=== PATIENT | female | born 1995 | race Caucasian/White ===

== ENCOUNTER → 2017-05-25 | Outpatient (CLI) | payer BC | END | disposition home or self-care (01) | LOC: C.LABSPEC 17:11 | PROVIDERS: ATTEND Nurse Practitioner Pediatrics | DX: J02.9 Acute pharyngitis, unspecified (principal) ==

== ENCOUNTER 2023-11-26 20:04 | Inpatient (IN) ==
[2023-11-26] MEDS ORDERED: OXYTOCIN 30 UNITS/NSS 30 UNITS/500 ML BAG IV PRN (20:54)
[2023-11-26] MEDS ORDERED: LIDOCAINE 1% LOCAL 20 ML VIAL INFIL PRN (20:54)
[2023-11-26 22:02] LABS: Hematocrit (blood only) 34.5 % (37.0-47.0); Mean Corpuscular Hgb Conc 34.8 g/dL (32.0-36.0); Mean Corpuscular Volume 89.1 fL (80.0-100.0); Mean Platelet Volume 11.6 fL (9.4-12.4); Platelet Count 232 K/uL (130-400); RDW Coefficient of Variation 13.1 % (11.5-14.5); RDW Standard Deviation 42.5 fL (36.4-46.3); Red Blood Count 3.87 M/uL (4.20-5.40); White Blood Count 11.98 K/ul (4.8-10.8)
--- NOTE | 2023-11-26 23:29 | History & Physical Report ---
Date of Service November 26, 2023 Assessment & Plan (1) PROM with onset of labor within 24 hours of rupture: Plan: 28-year-old G1, P0 at 38 weeks and 6 days of gestation presenting today with premature rupture of membranes at term, Slightly increased her blood pressure, asymptomatic, heart rate reassuring, Cervix unfavorable, GBS negative, Plan to admit, monitor, labs, IV fluids, discussed induction of labor either with oxytocin versus p.o. Cytotec. Patient prefers to ambulate and walk around. We will start sublingual Cytotec and pain management with IV Stadol and epidural when patient prefers, All questions were answered. Admission and Anticipated Discharge Date Admission Date: November 26, 2023 History of Present Illness Chief Complaint: LOF Primary Care Provider: Aarti Saleh MD Patient is a 28 yo at 38.6 wks with EDC of 20 She started to have LOF at around 6 pm and contractions started around 9 pm. She walked into L&D and she was grossly ruptured per her nurse, Nitrazine + Her cervix was ft/ thick/ -3, posterior She has been still leaking clear fluid Ctxs are not painful. Denies vaginal bleeding, fever chills, abdominal pain, headaches, change in vision, nausea vomiting. She reports good movements. Her has been uncomplicated, denies any medical problems, surgeries GBS neg Allergies Allergy/AdvReac Type Severity Reaction Status Date / Time No Known Allergies Allergy Verified 11/26/23 22:22 Home Medications Medication Instructions Recorded Confirmed Type 1 tab PO DAILY 11/26/23 11/26/23 History iron-vit C-vit G41-meotk acid 1 tab PO DAILY 11/26/23 11/26/23 History Patient History Medical History (Updated 11/26/23 @ 23:28 by Tameka William MD) Antepartum anemia complicating Dysfunction of eustachian tube Syncope Allergic rhinitis Vertigo Surgical History H/O wisdom tooth extraction Family History Mother Glaucoma Grandfather (Maternal) Breast cancer Grandfather (Paternal) Prostate cancer Social History Smoking Status: Never smoker Second Hand Exposure: No; Do You Dip or Chew Tobacco: No; Tobacco Cessation Education Requested by Patient: No Hx Alcohol Use: No Hx Substance Use: No Preferred Language: Hungarian Communication Ability: Effective Visual Impairment: No Limitations Hearing Ability: Normal Chief Creative Officer Required: No Beliefs That Will Affect Care: None marital status: Current Living Situation: Spouse Other Information That Helps Us Care for You: No Feels Safe at Home: No Is there a partner from a previous relationship who is making you feel unsafe now?: No Any Concerns about Your Family Situation: No Would You Like to Speak to Someone About Your Situation: No Safety Concerns: Feels Safe At This Time Assistive Devices: None DIRECT SUPPORT SPECIALIST History no h/o STD's ( HSV/Chlam/ GC) Review of Systems as per Subjective / HPI Physical Exam Constitutional: WD/WN, vitals as above well developed, well nourished and comfortable Gastrointestinal (Abdomen): normal bowel sounds, soft, nontender, no hepatosplenomegaly (GRAVID) Genitourinary: OB Exam Abdomen: + vertex OB Exam Monitor Tracing: + external uterine monitor used and + category I Bed side US: Vertex, WILBUR normal ,placenta anterior, EFW 3615 GR Results & Data Vital Signs (Past 12 Hours) Vital Signs Temp Pulse Resp BP 11/26/23 23:15 91 H 147/75 H 11/26/23 21:06 36.8 C 18 11/26/23 20:45 18 11/26/23 20:45 36.8 C 18 11/26/23 20:25 88 145/85 H Laboratory Results Lab Results 11/26/23 Range/Units 21:18 WBC 11.98 H (4.8-10.8) K/ul RBC 3.87 L (4.20-5.40) M/uL Hgb 12.0 (12.0-16.0) g/dl Hct 34.5 L (37.0-47.0) % MCV 89.1 (80.0-100.0) fL MCH 31.0 (25.0-34.0) pg MCHC 34.8 (32.0-36.0) g/dL RDW Std Deviation 42.5 (36.4-46.3) fL RDW Coeff of Jeff 13.1 (11.5-14.5) % Plt Count 232 (130-400) K/uL MPV 11.6 (9.4-12.4) fL
[2023-11-26] MEDS: miSOPROStoL 25 MCG TAB SL SCH (23:38)
[2023-11-27 01:00] LABS: Albumin Globulin Ratio 1.2 (0.9-2); Albumin Level 3.4 gm/dl (3.4-5.0); BUN Creatinine Ratio 12.7 (10-20); Bilirubin,Total 0.4 mg/dl (0.2-1.0); Calcium 8.7 mg/dl (8.6-10.3); Creatinine Clr Calc Pharmacy 134.6 ml/min; Est GFR (African American) 143.5 ml/min; Est GFR (Non-African American) 123.8 ml/min; Globulin 2.8 gm/dl (2.5-4.0); Potassium 3.5 mmol/L (3.5-5.1); Total Protein 6.2 gm/dl (6.0-8.3)
[2023-11-27] MEDS: BUTORPHANOL TARTRATE 1 MG/ML VIAL IV PRN (01:54)
[2023-11-27] MEDS: LACTATED RINGER'S 1,000 ML IV PRN (01:56)
[2023-11-27] MEDS: OXYTOCIN 30 UNITS/NSS 30 UNITS/500 ML BAG IV PRN (04:15)
--- OUTSIDE RECORDS SUMMARY | 2023-11-27 04:22 | External Medical Summary | Summary of Care ---
Author Name Unknown Organization [facility] Address [address] [facility] [place] [address] Phone [phone] Care Team Providers Care Stationary Engineer Name Role Phone Unavailable Primary Care Provider Unavailabl e Reason for Visit * Reason Comments Return Visit Encounter Details Date Type Department Care Team (Late st Contact Info) Description 11/20/2023 9:00 AM EST Office Visit Gynecology/Obstetric s [facility] [address] [place] [address] Priscilla Mccurdy CRNP [address] [place] [address] Encounter for supervision of normal first in third trimester*; Antepartum anemia complicating Allergies Active Allergy Reactions Criticality Noted Date Comments Diphenhydramine Hcl 01/16/2014 documented as of this encounter (statuses as of 11/20/2023) Medications Medication Sig Dispensed Refills Start Date End Date Status 27-0.8 MG Oral Tablet Take 1 Tablet by mouth daily at noon. 0 Active Iron-Vitamin C 65-125 MG Oral Tablet (Vitron C)Indications:Antepart um anemia complicating Take 1 Tablet by mouth in the morning. 30 Tablet 5 09/13/2023 Active documented as of this encounter (statuses as of 11/20/2023) Active Problems Problem Noted Date Diagnosed Date Antepartum anemia complicating 023 Overview: Iron daily Syncope 04/30/2023 Overview: r/t medical procedures Supervision of normal first 04/30/2023 Vertigo Allergic rhinitis Dysfunction of eustachian tube Estimated Date of Delivery Comme nts Yes 12/04/2023 Based on Ultraso und documented as of this encounter (statuses as of 11/20/2023) Resolved Problems Problem Noted Date Diagnosed Date Resolved Date Low-lying placenta 07/23/2023 Overview: Seen on anatomy u/s. Recheck 28w General counseling for presc ription of oral contraceptives 08/24/2015 04/28/2023 documented as of this encounter (statuses as of 11/20/2023) Immunizations Name Administration Dates Next Due HPV Vaccine, 9-Valent 06/14/2018,01/25/2018,11/1505/27/2018 TDAP (age 10 and older)(Boostrix) 09/26/2023 documented as of this encounter Social History Tobacco Use Types Packs/Day Years Used Date Smoking Tobacco: Never Smokeless Tobacco: Never Alcohol Use Standard Drinks/Week Comments Yes 0 (1 standard drink = 0.6 oz pur e alcohol) wkends PHQ-2 Answer Date Recorded PHQ-2 Score 0 08/18/2018 [place] Depression Scale Answer Date Recorded [place] Depression Scale Total 3 10/22/2023 The thought of harming myself has occurred to me . Never 10/22/2023 Estimated Date of Delivery Comme nts Yes 12/04/2023 Based on Ultraso und Sex and Gender Information Value Date Recorded Sex Assigned at Not on file Gender Identity Not on file Sexual Orientation Not on file Job Start Date Occupation Industry Not on file Not on file Not on file documented as of this encounter Last Filed Vital Signs Vital Sign Reading Time Taken Comments Blood Pressure 118/72 11/20/2023 8:55 AM EST Pulse - - Temperature - - Respiratory Rate - - Oxygen Saturation - - Inhaled Oxygen Concentration - - Weight 78 kg (172 lb) 11/20/2023 8:55 AM EST Height 160 cm (5' 3") 11/20/2023 8:55 AM EST Body Mass Index 30.47 11/20/2023 8:55 AM EST documented in this encounter Progress Notes * Priscilla Mccurdy CRNP - 11/20/2023 9:22 AM EST 38w No concerns. Some cramping and pressure, no regular contractions. Baby is active. No bleeding or LOF. Asking for cervical check. Transplant Nurse Documentation Provider requested senior training and development rep. Name of senior training and development rep: Sofi IOL scheduled for 12/10/23. RAFIA Fang documented in this encounter Nursing Notes * Sofi Servin LPN - 11/20/2023 9:01 AM EST 38w0d Denies concerns. Agreeable to scheduling IOL. documented in this encounter Plan of Treatment Upcoming Encounters Date Type Department Care Team (Late st Contact Info) Description 11/26/2023 8:45 AM EST Office Visit Gynecology/Obstetrics [facility] [address] [place] [address] Pelon Roland MD [address] [place] [address] 12/03/2023 1:45 PM EST Office Visit Gynecology/Obstetrics [facility] [address] [place] [address] Ruby Gonzalez CRNP [address] [place] [address] Health Maintenance Due Date Last Done Comments Hepatitis B (1 of 3 - 3-dose series) 1997 COVID-19 Vaccine (#1) 1997 Depression Screening 01/31/2019 01/31/2018 Influenza Vaccine (FLU shot) (#1) 2023 Pap Smear 10/06/2024 10/06/2021, 12/31/2018 DTaP,Tdap,and Td Vaccines (2 - Td or Tdap) 09/26/2033 09/26/2023 GARDASIL-HPV IMMUNIZATION SERIES Completed 06/14/2018, 01/25/2018, 11/26/2017 Gonorrhea / Chlamydia Screen Discontinued , 12/31/2018 MENINGOCOCCAL (MENACTRA/MENVEO) Aged Out No longer eligible based on patient's age to complete this topic Pneumococcal Vaccine: Pediatrics (0 to 5 Years) and At-Risk Patients (6 to 64 Years) Aged Out No longer eligible based on patient's age to complete this topic documented as of this encounter Medical Devices Not on filedocumented as of this encounter Visit Diagnoses Diagnosis Encounter for supervision of normal first in third trimester- Primary Supervision of normal first Antepartum anemia complicating Anemia, antepartum documented in this encounter
--- OUTSIDE RECORDS SUMMARY | 2023-11-27 04:23 | External Medical Summary | Summary of Care ---
Author Name Unknown Organization [facility] Address [address] [facility] [address] Phone [phone] Care Team Providers Care Project Intern Name Role Phone Unavailable Primary Care Provider Unavailabl e Reason for Visit * Reason Comments Return Visit Encounter Details Date Type Department Care Team (Late st Contact Info) Description 11/12/2023 7:45 AM EST Office Visit Gynecology/Obstetric s [facility] [address] [place] [address] Marleny Peres PA-C [address] [place] [address] Encounter for supervision of normal first in third trimester*; Antepartum anemia complicating Allergies Active Allergy Reactions Criticality Noted Date Comments Diphenhydramine Hcl 01/16/2014 documented as of this encounter (statuses as of 11/12/2023) Medications Medication Sig Dispensed Refills Start Date End Date Status 27-0.8 MG Oral Tablet Take 1 Tablet by mouth daily at noon. 0 Active Iron-Vitamin C 65-125 MG Oral Tablet (Vitron C)Indications:Antepart um anemia complicating Take 1 Tablet by mouth in the morning. 30 Tablet 5 09/13/2023 Active documented as of this encounter (statuses as of 11/12/2023) Active Problems Problem Noted Date Diagnosed Date Antepartum anemia complicating 023 Overview: Iron daily Syncope 04/30/2023 Overview: r/t medical procedures Supervision of normal first 04/30/2023 Vertigo Allergic rhinitis Dysfunction of eustachian tube Estimated Date of Delivery Comme nts Yes 12/04/2023 Based on Ultraso und documented as of this encounter (statuses as of 11/12/2023) Resolved Problems Problem Noted Date Diagnosed Date Resolved Date Low-lying placenta 07/23/2023 Overview: Seen on anatomy u/s. Recheck 28w General counseling for presc ription of oral contraceptives 08/24/2015 04/28/2023 documented as of this encounter (statuses as of 11/12/2023) Immunizations Name Administration Dates Next Due HPV Vaccine, 9-Valent 06/14/2018,01/25/2018,11/1505/27/2018 TDAP (age 10 and older)(Boostrix) 09/26/2023 documented as of this encounter Social History Tobacco Use Types Packs/Day Years Used Date Smoking Tobacco: Never Smokeless Tobacco: Never Alcohol Use Standard Drinks/Week Comments Yes 0 (1 standard drink = 0.6 oz pur e alcohol) wkends PHQ-2 Answer Date Recorded PHQ-2 Score 0 08/18/2018 [place] Depression Scale Answer Date Recorded [place] Depression Scale Total 3 10/22/2023 The thought [...] Sign Reading Time Taken Comments Blood Pressure 122/78 11/12/2023 7:54 AM EST Pulse - - Temperature - - Respiratory Rate - - Oxygen Saturation - - Inhaled Oxygen Concentration - - Weight 77.2 kg (170 lb 3.2 oz) 11/12/2023 7:54 A M EST Height 160 cm (5' 3") 11/12/2023 7:54 AM EST Body Mass Index 30.15 11/12/2023 7:54 AM EST documented in this encounter Progress Notes * Marleny Peres PA-C - 11/12/2023 8:06 AM EST 36w6d Doing well, having some sharp groin pains that do not last long. No contractions, LOF, VB. Pos fm. Due for GBS culture, collected. RTC in 1 week Marleny Peres PA-C documented in this encounter Nursing Notes * Elyse Hassan RN - 11/12/2023 7:55 AM EST Patient here for NATASHA 36w6d No concerns + FM GBS today Elyse Hassan RN documented in this encounter Plan of Treatment Upcoming Encounters Date Type Department Care Team (Late st Contact Info) Description 11/20/2023 9:00 AM EST Office Visit Gynecology/Obstetrics [facility] [address] [place] [address] Priscilla Mccurdy CRNP [address] [place] [address] 11/26/2023 8:45 AM EST Office Visit Gynecology/Obstetrics [facility] [address] [place] [address] Pelon Roland MD [address] [place] [address] 12/03/2023 1:45 PM EST Office Visit Gynecology/[facility] [address] [place] [address] Ruby Gonzalez CRNP [address] [place] [address] Pending Results Name Type Priority Associated Diagnoses Date /Time GROUP B STREP CULTURE/PCR Lab Routine Encounter for supervision of normal first in third trimester 11/12/2023 8:20 AM EST Health Maintenance Due Date Last Done Comments [...]
--- OUTSIDE RECORDS SUMMARY | 2023-11-27 04:23 | External Medical Summary | Summary of Care ---
Author Name Unknown Organization [facility] Address [address] [place] [address] Phone [phone] Care Team Providers Care Glove Brusher Name Role Phone Unavailable Primary Care Provider Unavailabl e Reason for Visit * Reason Comments Return Visit Encounter Details Date Type Department Care Team (Late st Contact Info) Description 10/22/2023 11:30 AM EST Office Visit Gynecology/Obstetric [facility] [address] [facility] [place] [address] April Melchor, [facility] [address] [facility] [place] [address] Encounter for supervision of normal first in third trimester*; Antepartum anemia complicating Allergies Active Allergy Reactions Criticality Noted Date Comments Diphenhydramine Hcl 01/16/2014 documented as of this encounter (statuses as of 10/22/2023) Medications Medication Sig Dispensed Refills Start Date End Date Status 27-0.8 MG Oral Tablet Take 1 Tablet by mouth daily at noon. 0 Active Iron-Vitamin C 65-125 MG Oral Tablet (Vitron C)Indications:Antepart um anemia complicating Take 1 Tablet by mouth in the morning. 30 Tablet 5 09/13/2023 Active documented as of this encounter (statuses as of 10/22/2023) Active Problems Problem Noted Date Diagnosed Date Antepartum anemia complicating 023 Overview: Iron daily Syncope 04/30/2023 Overview: r/t medical procedures Supervision of normal first 04/30/2023 Vertigo Allergic rhinitis Dysfunction of eustachian tube Estimated Date of Delivery Comme nts Yes 12/04/2023 Based on Ultraso und documented as of this encounter (statuses as of 10/22/2023) Resolved Problems Problem Noted Date Diagnosed Date Resolved Date Low-lying placenta 07/23/2023 Overview: Seen on anatomy u/s. Recheck 28w General counseling for presc ription of oral contraceptives 08/24/2015 04/28/2023 documented as of this encounter (statuses as of 10/22/2023) Immunizations Name Administration Dates Next Due HPV Vaccine, 9-Valent 06/14/2018,01/25/2018,11/1505/27/2018 TDAP (age 10 and older)(Boostrix) 09/26/2023 documented as of this encounter Social History Tobacco Use Types Packs/Day Years Used Date Smoking Tobacco: Never Smokeless Tobacco: Never Alcohol Use Standard Drinks/Week Comments Yes 0 (1 standard drink = 0.6 oz pur e alcohol) wkends PHQ-2 Answer Date Recorded PHQ-2 Score 0 08/18/2018 [place] Depression Scale Answer Date Recorded [place] Depression Scale Total 3 10/22/2023 The thought [...] Sign Reading Time Taken Comments Blood Pressure 110/68 10/22/2023 11:38 AM EST Pulse - - Temperature - - Respiratory Rate - - Oxygen Saturation - - Inhaled Oxygen Concentration - - Weight 74.4 kg (164 lb) 10/22/2023 11:38 AM EST Height - - Body Mass Index 29.05 10/09/2023 10:50 AM EST documented in this encounter Progress Notes * April Melchor CNM - 10/22/2023 11:40 AM EST Suzie Ho is a 28 year old female here for her routine OB appointment at 33w6d Her Estimated Date of Delivery: 12/04/23 REVIEW OF SYSTEMS: She affirms movement. Denies vaginal bleeding, LOF, contractions, N/V, headaches, vision changes, and RUQ pain. Patient travels up to 3 hours from her home for work and is asking when she should stop travelling. Having occasional BH contractions but not consistently. Increased vaginal discharge, no concern for rupture of membranes. Takes a PNV daily. Did a tour at [facility] where she plans delivery. Has met with a yamilka nicholson labor preparation. PHYSICAL EXAM: Filed Vitals: 10/22/23 1138 BP: 110/68 Weight: 74.4 kg (164 lb) +FHT 145-177bpm (per doppler; see NST results below) Fundal height: 35cm ASSESSMENT assessment with Non-stress Test completed on 10/22/2023 at 33w6d weeks gestation for indicationof tachycardia noted on doppler. heart baseline: 150 bpm Variability: Moderate Decelerations: absent Accelerations: present (15x15) Contractions: Present every 3-4 minutes lasting about 30-60 seconds (Patient is not feeling these.) NST start time: 12:02pm NST stop time: 12:22pm NST strip reviewed, interpreted, and approved by OB provider, April Melchor CNM. NST strip stored in clinic storage file. NST reactive. ASSESSMENT/PLAN: (O99.019) Antepartum anemia complicating Plan: -Hgb 11.9 on 10/09/23 -Continue Vitron C daily (Z34.03) Encounter for supervision of normal first in third trimester (primary encounter diagnosis) Plan: -Discussed risk of delivering at an outside hospital if she continues to travel. Recommended stopping long-distance travel by about 36 weeks. -Discussed RSV vaccine. Recommended maternal RSV vaccine between 32w0d and 36w6d. Discussed limitedavailability of pediatric RSV vaccine. Discussed risk of labor. Patient undecided. - discussed GBS and to expect swab to be completed at next visit - labor precautions and kick counts reviewed - RTO in 2 weeks Apirl Melchor CNM documented in this encounter Plan of Treatment Upcoming Encounters Date Type Department Care Team (Late st Contact Info) Description 11/05/2023 10:00 AM EST Office Visit Gynecology/Obstetrics [facility] [address] [place] [address] Priscilla Mccurdy CRNP [address] [place] [address] 11/12/2023 7:45 AM EST Office Visit Gynecology/Obst[facility]s [facility] [address] [place] [address] Marleny Peres PA-C [address] [place] [address] 11/20/2023 9:00 AM EST Office Visit Gynecology/Obstetrics [facility] [address] [place] [address] Priscilla Mccurdy CRNP [address] [place] [address] 11/26/2023 8:45 AM EST Office Visit Gynecology/Obst[facility]s [facility] [address] [place] [address] Pelon Roland MD [address] [place] [address] 12/03/2023 1:45 PM EST Office Visit Gynecology/Obst[facility]s [facility] [address] [place] [address] Ruby Gonzalez CRNP [address] [place] [address] Health Maintenance Due Date Last Done Comments [...]
--- OUTSIDE RECORDS SUMMARY | 2023-11-27 04:23 | External Medical Summary ---
Author Name Unknown Address Unknown Organization [id number]:[facility] [place] [address] [facility] [address] Laboratory Report Ordering Provider Test Date Status RENEE MARTÍNEZ 09/12/2023 14:01:50 Final Observation Date Value Abnormality Reference (Units ) Status Iron 09/12/2023 14:01:50 121 33-151 (ug/dL) Final Iron-binding capacity 09/12/2023 14:01:50 457 Above high normal 250-425 (ug/dL) Final Transferrin Sat % 09/12/2023 14:01:50 26 15-55 (%) Final Performing Location [facility] [place] [address] [facility] [address]
--- OUTSIDE RECORDS SUMMARY | 2023-11-27 04:23 | External Medical Summary ---
Author Name Unknown Address Unknown Organization [id number]:[facility] [place] [address] [facility] [place] [address] Laboratory Report Ordering Provider Test Date Status RENEE MARTÍNEZ 09/12/2023 14:01:50 Final Observation Date Value Abnormality Reference (Units ) Status SYNC LEUKOCYTES IN BLOOD BY AUTOMATED COUNT 09/12/2023 14:01:50 9.81 4.00-10.80 (K/uL) Final Segs 09/12/2023 14:01:50 76.3 Above high normal 40.0-75.0 (%) Final Lymphs % 09/12/2023 14:01:50 12.4 Below low normal 18.0-42.0 (%) Final Monos 09/12/2023 14:01:50 8.6 1.0-11.0 (%) Final Eosinophils 09/12/2023 14:01:50 1.0 0.0-6.0 (%) Final Basos 09/12/2023 14:01:50 0.2 0.0-2.0 (%) Final Immature Granulocyte, Percent 09/12/2023 14:01:50 1.5 0.0-2.0 (%) Final Absolute Segs 09/12/2023 14:01:50 7.48 1.80-7.70 (K/uL) Final Lymphs, absolute 09/12/2023 14:01:50 1.22 1.00-4.80 (K/ul) Final Monos, Abs 09/12/2023 14:01:50 0.84 0.00-1.10 (K/uL) Final Eos, Abs 09/12/2023 14:01:50 0.10 0.00-0.70 (K/uL) Final Basos, Abs 09/12/2023 14:01:50 0.02 0.00-0.20 (K/uL) Final Immature Granulocytes, Number 09/12/2023 14:01:50 0.15 0.00-0.20 (K/uL) Final Performing Location [facility] [place] [address] [facility] [address]
--- OUTSIDE RECORDS SUMMARY | 2023-11-27 04:23 | External Medical Summary ---
Author Name Unknown Address Unknown Organization [id number][place] [place] [address] [place] [address] Laboratory Report Ordering Provider Test Date Status RENEE MARTÍNEZ 09/12/2023 14:01:50 Final Observation Date Value Abnormality Reference (Units ) Status Ferritin 09/12/2023 14:01:50 15 13-150 (ng /mL) Final Performing Location [facility] - [address] [place] [address]
--- OUTSIDE RECORDS SUMMARY | 2023-11-27 04:23 | External Medical Summary | Summary of Care ---
Author Name Unknown Organization [facility] Address [address] [place] [address] Phone [phone] Care Team Providers Care Health Sciences Manager Name Role Phone Unavailable Primary Care Provider Unavailabl e Reason for Visit * Reason Comments Outpatient Testing Encounter Details Date Type Department Care Team (Late st Contact Info) Description 10/09/2023 11:20 AM EST Laboratory Laboratory, [facility] [address] [place] [id number] [facility] [address] [place] [address] Antepartum anemia complicating Allergies Active Allergy Reactions Criticality Noted Date Comments Diphenhydramine Hcl 01/16/2014 documented as of this encounter (statuses as of 10/09/2023) Medications Medication Sig Dispensed Refills Start Date End Date Status 27-0.8 MG Oral Tablet Take 1 Tablet by mouth daily at noon. 0 Active Iron-Vitamin C 65-125 MG Oral Tablet (Vitron C)Indications:Antepart um anemia complicating Take 1 Tablet by mouth in the morning. 30 Tablet 5 09/13/2023 Active documented as of this encounter (statuses as of 10/09/2023) Active Problems Problem Noted Date Diagnosed Date Antepartum anemia complicating 023 Overview: Iron daily Syncope 04/30/2023 Overview: r/t medical procedures Supervision of normal first 04/30/2023 Vertigo Allergic rhinitis Dysfunction of eustachian tube Estimated Date of Delivery Comme nts Yes 12/04/2023 Based on Ultraso und documented as of this encounter (statuses as of 10/09/2023) Resolved Problems Problem Noted Date Diagnosed Date Resolved Date Low-lying placenta 07/23/2023 Overview: Seen on anatomy u/s. Recheck 28w General counseling for presc ription of oral contraceptives 08/24/2015 04/28/2023 documented as of this encounter (statuses as of 10/09/2023) Immunizations Name Administration Dates Next Due HPV Vaccine, 9-Valent 06/14/2018,01/25/2018,11/1505/27/2018 TDAP (age 10 and older)(Boostrix) 09/26/2023 documented as of this encounter Social History Tobacco Use Types Packs/Day Years Used Date Smoking Tobacco: Never Smokeless Tobacco: Never Alcohol Use Standard Drinks/Week Comments Yes 0 (1 standard drink = 0.6 oz pur e alcohol) wkends PHQ-2 Answer Date Recorded PHQ-2 Score 0 08/18/2018 [place] Depression Scale Answer Date Recorded [place] Depression Scale Total 0 09/12/2023 The thought of harming myself has occurred to me . Never 09/12/2023 Estimated Date of Delivery Comme nts Yes 12/04/2023 Based on Ultraso und Sex and Gender Information Value Date Recorded Sex Assigned at Not on file Gender Identity Not on file Sexual Orientation Not on file Job Start Date Occupation Industry Not on file Not on file Not on file documented as of this encounter Plan of Treatment Upcoming Encounters Date Type Department Care Team (Late st Contact Info) Description 10/22/2023 11:30 AM EST Office Visit Gynecology/Obstetrics [facility] [address] [place] [address] April Melchor, RAMIREZ [address] [place] [phone] Pending Results Name Type Priority Associated Diagnoses Date /Time CBC WITH WBC DIFFERENTIAL AND ANEMIA REFLEX WORKUP Lab Routine Antepartum anemia complicating 10/09/2023 11:22 AM EST ANEMIA CBC Lab Routine Antepartum anemia complicating 10/09/2023 11:22 AM EST DIFFERENTIAL, AUTOMATED Lab Routine Antepartum anemia complicating 10/09/2023 11:22 AM EST ANEMIA REFLEX CHEMISTRY HOLD Lab Routine Antepartum anemia complicating 10/09/2023 11:22 AM EST Health Maintenance Due Date Last [...] as of this encounter Visit Diagnoses Diagnosis Antepartum anemia complicating Anemia, antepartum documented in this encounter
--- OUTSIDE RECORDS SUMMARY | 2023-11-27 04:23 | External Medical Summary | Summary of Care ---
Author Name Unknown Organization [facility] Address [address] [facility] [place] [address] Phone [phone] Care Team Providers Care Floor Installation Mechanic Name Role Phone Unavailable Primary Care Provider Unavailabl e Reason for Visit * Reason Comments Return Visit Encounter Details Date Type Department Care Team (Late st Contact Info) Description 09/12/2023 1:45 PM EST Office Visit Gynecology/Obstetric s [facility] [address] [place] [address] Ruby Gonzalez CRNP [address] [place] [address] Encounter for supervision of normal first in third trimester* Allergies Active Allergy Reactions Criticality Noted Date Comments Diphenhydramine Hcl 01/16/2014 documented as of this encounter (statuses as of 09/12/2023) Medications Medication Sig Dispensed Refills Start Date End Date Status 27-0.8 MG Oral Tablet Take 1 Tablet by mouth daily at noon. 0 Active documented as of this encounter (statuses as of 09/12/2023) Active Problems Problem Noted Date Diagnosed Date Syncope 04/30/2023 Overview: r/t medical procedures Supervision of normal first 04/30/2023 Vertigo Allergic rhinitis Dysfunction of eustachian tube Estimated Date of Delivery Comme nts Yes 12/04/2023 Based on Ultraso und documented as of this encounter (statuses as of 09/12/2023) Resolved Problems Problem Noted Date Diagnosed Date Resolved Date Low-lying placenta 07/23/2023 11/29/202 3 Overview: Seen on anatomy u/s. Recheck 28w General counseling for presc ription of oral contraceptives 08/24/2015 04/28/2023 documented as of this encounter (statuses as of 09/12/2023) Immunizations Name Administration Dates Next Due HPV Vaccine, 9-Valent 06/14/2018,01/25/2018,11/1505/27/2018 documented as of this encounter Social History Tobacco Use Types Packs/Day Years Used Date Smoking Tobacco: Never Smokeless Tobacco: Never Alcohol Use Standard Drinks/Week Comments Yes 0 (1 standard drink = 0.6 oz pur e alcohol) wkends PHQ-2 Answer Date Recorded PHQ-2 Score 0 08/18/2018 [place] Depression Scale Answer Date Recorded [place] Depression Scale Total 0 09/12/2023 The thought [...] Sign Reading Time Taken Comments Blood Pressure 104/62 09/12/2023 1:18 PM EST Pulse - - Temperature - - Respiratory Rate - - Oxygen Saturation - - Inhaled Oxygen Concentration - - Weight 70.4 kg (155 lb 3.2 oz) 09/12/2023 1:18 P M EST Height - - Body Mass Index 27.49 08/20/2023 11:41 AM EST documented in this encounter Progress Notes * Jennifer Roque LPN - 09/12/2023 1:17 PM EST 28w1d Denies vaginal bleeding/rom + movement Noticed some period like cramping over the weekend- went away. US today GTT today * Ruby Gonzalez CRNP - 09/12/2023 1:13 PM EST 28w1d Feels well. No bleeding, + movement. Repeat u/s today for low-lying placenta, final report in process. Per kota Staleyi, placenta is no longer low-lying. Had 1 instance of cramping when on her feet last weekend - discussed rest/fluids and to call if persists or worsens. Reviewed movement patterns/FKC. Labs today. Wishes to defer Tdap to next visit. 2 week return RAFIA Little documented in this encounter Plan of Treatment Upcoming Encounters Date Type Department Care Team (Late st Contact Info) Description 09/26/2023 1:45 PM EST Office Visit Gynecology/Obstetrics [facility] [address] [place] [address] Ruby Gonzalez CRNP [address] [place] [address] Health Maintenance Due Date Last Done Comments Hepatitis B (1 of 3 - 3-dose series) 1997 COVID-19 Vaccine (#1) 1997 DTaP,Tdap,and Td Vaccines (1 - Tdap) 2016 Depression Screening 01/31/2019 01/31/2018 Influenza Vaccine (FLU shot) (#1) 2023 Pap Smear 10/06/2024 10/06/2021, 12/31/2018 GARDASIL-HPV IMMUNIZATION SERIES Completed 06/14/2018, 01/25/2018, 11/26/2017 [...] third trimester- Primary Supervision of normal first documented in this encounter
--- OUTSIDE RECORDS SUMMARY | 2023-11-27 04:23 | External Medical Summary | Summary of Care ---
Author Name Unknown Organization [facility] Address [address] [facility] [place] [address] Phone [phone] Care Team Providers Care Transportation Assistant Name Role Phone Unavailable Primary Care Provider Unavailabl e Reason for Visit * Reason Comments Return Visit Encounter Details Date Type Department Care Team (Late st Contact Info) Description 09/26/2023 1:45 PM EST Office Visit Gynecology/Obstetric s [facility] [address] [place] [address] Ruby Gonzalez CRNP [address] [place] [address] Encounter for supervision of normal first in third trimester*; Antepartum anemia complicating ; Need for prophylactic vaccination with combined zlxkbxwfxe-npdlpop-uq rtussis (DTP) vaccine Allergies Active Allergy Reactions Criticality Noted Date Comments Diphenhydramine Hcl 01/16/2014 documented as of this encounter (statuses as of 09/26/2023) Medications Medication Sig Dispensed Refills Start Date End Date Status 27-0.8 MG Oral Tablet Take 1 Tablet by mouth daily at noon. 0 Active Iron-Vitamin C 65-125 MG Oral Tablet (Vitron C)Indications:Antepart um anemia complicating Take 1 Tablet by mouth in the morning. 30 Tablet 5 09/13/2023 Active documented as of this encounter (statuses as of 09/26/2023) Active Problems Problem Noted Date Diagnosed Date Antepartum anemia complicating 023 Overview: Iron daily Syncope 04/30/2023 Overview: r/t medical procedures Supervision of normal first 04/30/2023 Vertigo Allergic rhinitis Dysfunction of eustachian tube Estimated Date of Delivery Comme nts Yes 12/04/2023 Based on Ultraso und documented as of this encounter (statuses as of 09/26/2023) Resolved Problems Problem Noted Date Diagnosed Date Resolved Date Low-lying placenta 07/23/2023 Overview: Seen on anatomy u/s. Recheck 28w General counseling for presc ription of oral contraceptives 08/24/2015 04/28/2023 documented as of this encounter (statuses as of 09/26/2023) Immunizations Name Administration Dates Next Due HPV Vaccine, 9-Valent 06/14/2018,01/25/2018,11/1505/27/2018 TDAP (age 10 and older)(Boostrix) 09/26/2023 documented as of this encounter Social History Tobacco Use Types Packs/Day Years Used Date Smoking Tobacco: Never Smokeless Tobacco: Never Alcohol Use Standard Drinks/Week Comments Yes 0 (1 standard drink = 0.6 oz pur e alcohol) wkends PHQ-2 Answer Date Recorded PHQ-2 Score 0 08/18/2018 [place] Depression Scale Answer Date Recorded [place] Depression Scale Total 0 09/12/2023 The thought [...] Sign Reading Time Taken Comments Blood Pressure 106/58 09/26/2023 1:43 PM EST Pulse - - Temperature - - Respiratory Rate - - Oxygen Saturation - - Inhaled Oxygen Concentration - - Weight 72.6 kg (160 lb) 09/26/2023 1:43 PM EST Height - - Body Mass Index 28.34 08/20/2023 11:41 AM EST documented in this encounter Progress Notes * Ruby Gonzalez CRNP - 09/26/2023 1:48 PM EST 30w1d Good movement. No leaking, bleeding, regular ctx. Discussed recommendation and rationale for Tdap in - she accepts this today. Normal 1 hr GTT. Doing well on Vitron C - does notice a sensation of mouth burning since starting. If continues, cantake iron w/o vit C to see if this helps. Discussed repeat CBC at next visit. 2 week return RAFIA Little * Jennifer Roque LPN - 09/26/2023 1:44 PM EST 30w1d Denies vaginal bleeding/rom + movement Discuss tdap documented in this encounter Nursing Notes * Jennifer Roque LPN - 09/26/2023 1:57 PM EST Patient here for tdap injection. Patient doing well no complaints. Injection given IM as ordered. Patient tolerated well. Patient to follow up as directed. Patient instructed to call if any complications. Patient verbalized understanding of instructions given. Injection site: Right Deltoid Medication Source: Dispensed stock medication documented in this encounter Plan of Treatment Upcoming Encounters Date Type Department Care Team (Late st Contact Info) Description 10/09/2023 11:45 AM EST Office Visit Gynecology/Obstetrics [facility] [address] [place] [address] Priscilla Mccurdy CRNP [address] [place] [address] Health Maintenance Due Date Last Done Comments [...] normal first Antepartum anemia complicating Anemia, antepartum Need for prophylactic vaccination with combined wqavheuhnn-gkjbljp-vbvtnjxos (DTP) vaccine documented in this encounter
--- OUTSIDE RECORDS SUMMARY | 2023-11-27 04:23 | External Medical Summary | Summary of Care ---
Author Name Unknown Organization [facility] Address [address] [facility] [place] [address] Phone [phone] Care Team Providers Care Bicycle Fitter Name Role Phone Unavailable Primary Care Provider Unavailabl e Reason for Visit * Reason Comments Return Visit Encounter Details Date Type Department Care Team (Late st Contact Info) Description 10/09/2023 11:00 AM EST Office Visit Gynecology/Obstetric s [facility] [address] [place] [address] Priscilla Mccurdy CRNP [address] [place] [address] Encounter for supervision of normal first in [...] Answer Date Recorded PHQ-2 Score 0 08/18/2018 [place] Depression Scale Answer Date Recorded [place] Depression Scale Total 0 09/12/2023 The thought [...] Sign Reading Time Taken Comments Blood Pressure 104/56 10/09/2023 10:50 AM EST Pulse - - Temperature - - Respiratory Rate - - Oxygen Saturation - - Inhaled Oxygen Concentration - - Weight 73 kg (161 lb) 10/09/2023 10:50 AM EST Height 160 cm (5' 3") 10/09/2023 10:50 AM EST Body Mass Index 28.52 10/09/2023 10:50 AM EST documented in this encounter Progress Notes * Rosie Phoenix PA-C - 10/09/2023 11:18 AM EST 32w0d No concerns. Good movement. No contractions, bleeding, leaking of fluid. Completed heir and parent class at [facility]. Repeating CBC today. Taking iron daily. Rosie Phoenix PA-C * Sofi Servin LPN - 10/09/2023 10:53 AM EST 32w0d Denies concerns. documented in this encounter Plan of Treatment Upcoming Encounters Date Type Department Care Team (Late st Contact Info) Description 10/22/2023 11:30 AM EST Office Visit Gynecology/Obstetrics [facility] [address] [facility] [place] [address] [address] [place] [address] Pending Results Name Type Priority Associated Diagnoses Date /Time CBC WITH WBC DIFFERENTIAL AND ANEMIA REFLEX WORKUP Lab Routine Antepartum anemia complicating 10/09/2023 11:22 AM EST Scheduled Orders Name Type Priority Associated Diagnoses Orde r Schedule CBC WITH WBC DIFFERENTIAL AND ANEMIA REFLEX WORKUP Lab Routine Antepartum anemia complicating Expected: 10/09/2023 (Approximate), Expires: 10/09/2024 Health Maintenance Due Date Last Done Comments [...]
--- OUTSIDE RECORDS SUMMARY | 2023-11-27 04:23 | External Medical Summary | Summary of Care ---
Author Name Unknown Organization [facility] Address [address] [facility] [place] [address] Phone [phone] Care Team Providers Care Telephone Repairer Name Role Phone Unavailable Primary Care Provider Unavailabl e Encounter Details Date Type Department Care Team (Late st Contact Info) Description 09/13/2023 Orders Only Gynecology/Obstetrics [facility] [address] [place] [address] Marleny Peres PA-C [address] [place] [address] Antepartum anemia complicating * Allergies Active Allergy Reactions Criticality Noted Date Comments Diphenhydramine Hcl 01/16/2014 documented as of this encounter (statuses as of 09/13/2023) Medications Medication Sig Dispensed Refills Start Date End Date Status 27-0.8 MG Oral Tablet Take 1 Tablet by mouth daily at noon. 0 Active Iron-Vitamin C 65-125 MG Oral Tablet (Vitron C)Indications:Antepart um anemia complicating Take 1 Tablet by mouth in the morning. 30 Tablet 5 09/13/2023 Active documented as of this encounter (statuses as of 09/13/2023) Active Problems Problem Noted Date Diagnosed Date Antepartum anemia complicating 023 Overview: Iron daily Syncope 04/30/2023 Overview: r/t medical procedures Supervision of normal first 04/30/2023 Vertigo Allergic rhinitis Dysfunction of eustachian tube Estimated Date of Delivery Comme nts Yes 12/04/2023 Based on Ultraso und documented as of this encounter (statuses as of 09/13/2023) Resolved Problems Problem Noted Date Diagnosed Date Resolved Date Low-lying placenta 07/23/2023 Overview: Seen on anatomy u/s. Recheck 28w General counseling for presc ription of oral contraceptives 08/24/2015 04/28/2023 documented as of this encounter (statuses as of 09/13/2023) Immunizations Name Administration Dates Next Due HPV Vaccine, 9-Valent 06/14/2018,01/25/2018,11/1505/27/2018 documented as of this encounter Social History Tobacco Use Types Packs/Day Years Used Date Smoking Tobacco: Never Smokeless Tobacco: Never Alcohol Use Standard Drinks/Week Comments Yes 0 (1 standard drink = 0.6 oz pur e alcohol) wkends PHQ-2 Answer Date Recorded PHQ-2 Score 0 08/18/2018 [place] Depression Scale Answer Date Recorded [place] Depression Scale Total 0 09/12/2023 The thought [...] 09/26/2023 1:45 PM EST Office [facility] [address] [place] [address] Back[place], RAFIA Bailey [address] [place] [address] Health Maintenance Due Date Last Done Comments [...] encounter Visit Diagnoses Diagnosis Antepartum anemia complicating - Primary Anemia, antepartum documented in this encounter
--- OUTSIDE RECORDS SUMMARY | 2023-11-27 04:23 | External Medical Summary | Summary of Care ---
Author Name Unknown Organization [facility] Address [address] [place] [facility] [place] [address] Phone [phone] Care Team Providers Care Playground Attendant Name Role Phone Unavailable Primary Care Provider Unavailabl e Reason for Visit * Reason Comments Outpatient Testing Encounter Details Date Type Department Care Team (Late st Contact Info) Description 09/12/2023 12:40 PM EST Laboratory Laboratory, [facility] [address] [place] [phone] [facility] [address] [place] [address] Encounter for supervision of normal first in second trimester Allergies Active Allergy Reactions Criticality Noted Date [...] Answer Date Recorded PHQ-2 Score 0 08/18/2018 [place] Depression Scale Answer Date Recorded [place] Depression Scale Total 0 09/12/2023 The thought [...] 09/26/2023 1:45 PM EST Office Visit Gynecology/Obstetrics [facility] [address] [place] [address] BackerRuby CRNP [address] [place] [address] Pending Results Name Type Priority Associated Diagnoses Date /Time SYPHILIS ANTIBODY SCREEN WITH REFLEX TO RPR Lab Routine Encounter for supervision of normal first in second trimester 09/12/2023 2:01 PM EST 50-G GESTATIONAL GLUCOSE, 1 HOUR Lab Routine Encounter for supervision of normal first in second trimester 09/12/2023 2:01 PM EST CBC WITH WBC DIFFERENTIAL AND ANEMIA REFLEX WORKUP Lab Routine Encounter for supervision of normal first in second trimester 09/12/2023 2:01 PM EST SYPHILIS ANTIBODY SCREEN Lab Routine Encounter for supervision of normal first in second trimester 09/12/2023 2:01 PM EST ANEMIA CBC Lab Routine Encounter for supervision of normal first in second trimester 09/12/2023 2:01 PM EST DIFFERENTIAL, AUTOMATED Lab Routine Encounter for supervision of normal first in second trimester 09/12/2023 2:01 PM EST ANEMIA REFLEX CHEMISTRY HOLD Lab Routine Encounter for supervision of normal first in second trimester 09/12/2023 2:01 PM EST Health Maintenance Due Date Last Done [...] Encounter for supervision of normal first in second trimester Supervision of normal first documented in this encounter
--- OUTSIDE RECORDS SUMMARY | 2023-11-27 04:23 | External Medical Summary ---
Author Name Unknown Address Unknown Organization K01:[facility] [place] [facility] [address] [place] [address] Laboratory Report Ordering Provider Test Date Status RENEE MARTÍNEZ 11/12/2023 08:20:23 Final Observation Date Value Abnormality Reference (Units ) Status Streptococcus agalactiae DNA [Presence] in Specimen by MARK ANTHONY with probe detection 11/12/2023 08:20:23 Negative Negative Final No Group B Streptococcus det ected by culture-enhanced PCR (amplified probe).
The collection of vaginal/rectal swab specimen combinations (FDA approved specimen type) is optimal for the detection of Group B Streptococcus. Single source collection (vaginal only or rectal only) or alternate specimen sources may lead to false negative results. Performing Location [facility] [place] [address] [place] [address]
--- OUTSIDE RECORDS SUMMARY | 2023-11-27 04:23 | External Medical Summary | Summary of Care ---
Author Name Unknown Organization [facility] Address [address] [facility] [place] [address] Phone [phone] Care Team Providers Care Sap Administrator Name Role Phone Unavailable Primary Care Provider Unavailabl e Reason for Visit * Reason Comments Return Visit Encounter Details Date Type Department Care Team (Late st Contact Info) Description 11/05/2023 10:00 AM EST Office Visit Gynecology/Obstetric s [facility] [address] [place] [address] Priscilla Mccurdy CRNP [address] [place] [address] Encounter for supervision of normal first in third trimester*; Antepartum anemia complicating Allergies Active Allergy Reactions Criticality Noted Date Comments Diphenhydramine Hcl 01/16/2014 documented as of this encounter (statuses as of 11/05/2023) Medications Medication Sig Dispensed Refills Start Date End Date Status 27-0.8 MG Oral Tablet Take 1 Tablet by mouth daily at noon. 0 Active Iron-Vitamin C 65-125 MG Oral Tablet (Vitron C)Indications:Antepart um anemia complicating Take 1 Tablet by mouth in the morning. 30 Tablet 5 09/13/2023 Active documented as of this encounter (statuses as of 11/05/2023) Active Problems Problem Noted Date Diagnosed Date Antepartum anemia complicating 023 Overview: Iron daily Syncope 04/30/2023 Overview: r/t medical procedures Supervision of normal first 04/30/2023 Vertigo Allergic rhinitis Dysfunction of eustachian tube Estimated Date of Delivery Comme nts Yes 12/04/2023 Based on Ultraso und documented as of this encounter (statuses as of 11/05/2023) Resolved Problems Problem Noted Date Diagnosed Date Resolved Date Low-lying placenta 07/23/2023 Overview: Seen on anatomy u/s. Recheck 28w General counseling for presc ription of oral contraceptives 08/24/2015 04/28/2023 documented as of this encounter (statuses as of 11/05/2023) Immunizations Name Administration Dates Next Due HPV Vaccine, 9-Valent 06/14/2018,01/25/2018,11/1505/27/2018 TDAP (age 10 and older)(Boostrix) 09/26/2023 documented as of this encounter Social History Tobacco Use Types Packs/Day Years Used Date Smoking Tobacco: Never Smokeless Tobacco: Never Alcohol Use Standard Drinks/Week Comments Yes 0 (1 standard drink = 0.6 oz pur e alcohol) wkends PHQ-2 Answer Date Recorded PHQ-2 Score 0 08/18/2018 [place]worth Depression Scale Answer Date Recorded [place] Depression Scale Total 3 10/22/2023 The thought [...] Reading Time Taken Comments Blood Pressure 104/62 11/05/2023 10:02 AM EST Pulse - - Temperature - - Respiratory Rate - - Oxygen Saturation - - Inhaled Oxygen Concentration - - Weight 75.3 kg (166 lb) 11/05/2023 10:02 AM EST Height 160 cm (5' 3") 11/05/2023 10:02 AM EST Body Mass Index 29.41 11/05/2023 10:02 AM EST documented in this encounter Progress Notes * Priscilla Mccurdy CRNP - 11/05/2023 10:15 AM EST 35w6d Complaints: none Feeling well overall. Good FM. No contractions, bleeding, or LOF. Has looked in to breast pump, states a company will be faxing our office. Declines RSV vaccine. RAFIA Fang * Keira Galeano LPN - 11/05/2023 9:59 AM EST 35w6d Denies any issues documented in this encounter Plan of Treatment Upcoming Encounters Date Type Department Care Team (Late st Contact Info) Description 11/12/2023 7:45 AM EST Office Visit Gynecology/Obstetrics [facility] [address] [place] [address] Marleny Peres PA-C [address] [place] [address] 11/20/2023 9:00 AM EST Office Visit Gynecology/Obstetrics [facility] [address] [place] [address] Priscilla Mccurdy CRNP [address] [place] [address] 11/26/2023 8:45 AM EST Office Visit Gynecology/Obstetrics [facility] [address] [place] [address] Pelon Roland MD [address] [place] [address] 12/03/2023 1:45 PM EST Office Visit Gynecology/Obstetrics [facility] [address] [place] [address] Ruby Gonzalez CRNP [address] [place] [address] Health Maintenance Due Date Last Done Comments [...]
--- OUTSIDE RECORDS SUMMARY | 2023-11-27 04:23 | External Medical Summary | Summary of Care ---
Author Name Unknown Organization [facility] Address [address] [facility] [place] [address] Phone [phone] Care Team Providers Care Car Repossessor Name Role Phone Unavailable Primary Care Provider Unavailabl e Reason for Visit * Reason Comments Return Visit Encounter Details Date Type Department Care Team (Late st Contact Info) Description 11/12/2023 7:45 AM EST Office Visit Gynecology/Obstetric s [facility] [address] [place] [address] Marleny Peres PA-C [address] [place] [address] Encounter for supervision of normal first in [...] Answer Date Recorded PHQ-2 Score 0 08/18/2018 Wellington Depression Scale Answer Date Recorded [place] Depression Scale Total 3 10/22/2023 The thought [...] 9:00 AM EST Office Visit Gynecology/Obstetrics [facility] [address] [place] [address] Priscilla Mccurdy CRNP [address] [place] [address] 11/26/2023 8:45 AM EST Office Visit Gynecology/Obstetrics [facility] [address] [place] [address] Pelon Roland MD [address] [place] [address] 12/03/2023 1:45 PM EST Office Visit Gynecology/Obstetrics [facility] [address] [place] [address] Ruby Gonzalez CRNP [address] [place] [address] Pending Results Name Type Priority Associated Diagnoses [...]
--- OUTSIDE RECORDS SUMMARY | 2023-11-27 04:23 | External Medical Summary ---
Author Name Unknown Address Unknown Organization [id number]:[facility] [place] [address] [place] [address] Laboratory Report Ordering Provider Test Date Status RENEE MARTÍNEZ 09/12/2023 14:01:50 Final Observation Date Value Abnormality Reference (Units ) Status TSH 09/12/2023 14:01:50 0.57 0.27-4.20 (uIU/mL) Final Performing Location LABORATORY [facility] - [address] [place] [address]
--- OUTSIDE RECORDS SUMMARY | 2023-11-27 04:23 | External Medical Summary ---
Author Name Unknown Address Unknown Organization [id number]:[facility] [place] [facility] [place] [address] Laboratory Report Ordering Provider Test Date Status FILEMON GOMEZ 10/09/2023 11:22:00 Final Observation Date Value Abnormality Reference (Units ) Status WBC, Total 10/09/2023 11:22:00 11.05 Above high normal 4 .00-10.80 (K/uL) Final RBC 10/09/2023 11:22:00 3.84 3.85-5.15 (M/uL) Final Hemoglobin 10/09/2023 11:22:00 11.9 Below low normal 12 .0-15.3 (g/dL) Final Anemia reflex testing trigge rs on a HGB < 12.0 for Females and HGB < 13.0 for Males in accordance with the WHO Anemia Guidelines
Anemia reflex testing triggers on a HGB < 12.0 for Females and HGB < 13.0 for Males in accordance with the WHO Anemia Guidelines HCT 10/09/2023 11:22:00 35.5 Below low normal 36. 0-45.2 (%) Final MCV 10/09/2023 11:22:00 92.4 81.5-97.5 (fL) Final MCH 10/09/2023 11:22:00 31.0 27.0-34.0 (pg) Final MCHC 10/09/2023 11:22:00 33.5 32.0-36.0 (g/dL) Final RDW 10/09/2023 11:22:00 13.0 11.5-15.5 (%) Final Platelets 10/09/2023 11:22:00 260 140-400 (K /uL) Final MPV 10/09/2023 11:22:00 10.3 6.6-11.1 ( fL) Final Nucleated erythrocytes/100 leukocytes [Ratio] in Blood by Automated count 10/09/2023 11:22:00 0 <=0 (/100 WBCs) Final Performing Location LAB[facility]ATORY [facility] [place] [address] [facility] [address]
--- OUTSIDE RECORDS SUMMARY | 2023-11-27 04:23 | External Medical Summary ---
Author Name Unknown Address Unknown Organization [id number]:LABORATORY [place] [address] [place] [address] Laboratory Report Ordering Provider Test Date Status RENEE MARTÍNEZ 09/12/2023 14:01:50 Final Observation Date Value Abnormality Reference (Units ) Status WBC, Total 09/12/2023 14:01:50 9.81 4.00-10.8 0 (K/uL) Final RBC 09/12/2023 14:01:50 3.58 3.85-5.15 (M/uL) Final Hemoglobin 09/12/2023 14:01:50 11.1 Below low normal 12 .0-15.3 (g/dL) Final Anemia reflex testing trigge rs on a HGB < 12.0 for Females and HGB < 13.0 for Males in accordance with the WHO Anemia Guidelines
Anemia reflex testing triggers on a HGB < 12.0 for Females and HGB < 13.0 for Males in accordance with the WHO Anemia Guidelines HCT 09/12/2023 14:01:50 34.7 Below low normal 36. 0-45.2 (%) Final MCV 09/12/2023 14:01:50 96.9 81.5-97.5 (fL) Final MCH 09/12/2023 14:01:50 31.0 27.0-34.0 (pg) Final MCHC 09/12/2023 14:01:50 32.0 32.0-36.0 (g/dL) Final RDW 09/12/2023 14:01:50 12.9 11.5-15.5 (%) Final Platelets 09/12/2023 14:01:50 254 140-400 (K /uL) Final MPV 09/12/2023 14:01:50 10.7 6.6-11.1 ( fL) Final Nucleated erythrocytes/100 leukocytes [Ratio] in Blood by Automated count 09/12/2023 14:01:50 0 <=0 (/100 WBCs) Final Performing Location [facility]ORY [facility] [place] [address] [facility] [address]
--- OUTSIDE RECORDS SUMMARY | 2023-11-27 04:23 | External Medical Summary ---
Author Name Unknown Address Unknown Organization [id number][facility] [address] [place] [address] Laboratory Report Ordering Provider Test Date Status RENEE MARTÍNEZ 09/12/2023 14:01:50 Final Observation Date Value Abnormality Reference (Units ) Status Glucose [Moles/volume] in Serum or Plasma --1 hour post 50 g glucose PO 09/12/2023 14:01:50 109 70-129 (mg/dL) Final Performing Location LABORATORY [facility] [place] [address] - [address] [place] [address]
--- OUTSIDE RECORDS SUMMARY | 2023-11-27 04:23 | External Medical Summary ---
Author Name Unknown Address Unknown Organization [id number][place] [place] [facility] [address] [place] [address] Laboratory Report Ordering Provider Test Date Status RENEE MARTÍNEZ 09/12/2023 14:01:50 Final Observation Date Value Abnormality Reference (Units ) Status Creatinine 09/12/2023 14:01:50 0.6 0.5-1.0 (mg/dL) Final Glomerular filtration rate/1.73 sq M.predicted [Volume Rate/Area] in Serum, Plasma or Blood by Creatinine-based formula (CKD-EPI) 09/12/2023 14:01:50 >90 >=60 (mL/min) Final eGFR is calculated based on the CKD-EPI 2020 equation Performing Location [facility] [place] [address] [place] [address]
--- OUTSIDE RECORDS SUMMARY | 2023-11-27 04:23 | External Medical Summary ---
Author Name Unknown Address Unknown Organization [id number]:LABORATORY [place] - [address] [place] [address] Laboratory Report Ordering Provider Test Date Status RENEE MARTÍNEZ 09/12/2023 14:01:50 Final Observation Date Value Abnormality Reference (Units ) Status Vitamin B12 09/12/2023 14:01:50 [phone] (pg/mL) Final Performing Location LABORATORY [place] - [address] [place] [address]
--- OUTSIDE RECORDS SUMMARY | 2023-11-27 04:24 | External Medical Summary | Summary of Care ---
Author Name Unknown Organization [facility] Address [address] [facility] [place] [address] Phone [phone] Care Team Providers Care Local Sales Manager Name Role Phone Unavailable Primary Care Provider Unavailabl e Reason for Visit * Reason Comments Return Visit Encounter Details Date Type Department Care Team Description 06/26/2023 Office Visit Gynecology/Obstetrics [facility] [address] [place] [address] Priscilla Mccurdy CRNP [address] [place] [address] Encounter for supervision of normal first in second trimester*; related conditions, unspecified, second trimester Allergies Active Allergy Reactions Severity Noted Date Comments Diphenhydramine Hcl 01/16/2014 documented as of this encounter (statuses as of 06/26/2023) Medications Medication Sig Dispensed Refills Start Date End Date Status 27-0.8 MG Oral Tablet Take 1 Tablet by mouth daily at noon. 0 Active documented as of this encounter (statuses as of 06/26/2023) Active Problems Problem Noted Date Syncope 04/30/2023 Overview: r/t medical procedures Supervision of normal first Vertigo Allergic rhinitis Dysfunction of eustachian tube Estimated Date of Delivery Comme nts Yes 12/04/2023 Based on Ultraso und documented as of this encounter (statuses as of 06/26/2023) Resolved Problems Problem Noted Date Resolved Date General counseling for prescription of oral cont raceptives 08/24/2015 04/28/2023 documented as of this encounter (statuses as of 06/26/2023) Immunizations Name Administration Dates Next Due HPV Vaccine, 9-Valent 06/14/2018,01/25/2018,11/1505/27/2018 documented as of this encounter Social History Tobacco Use Types Packs/Day Years Used Date Smoking Tobacco: Never Smokeless Tobacco: Never Alcohol Use Standard Drinks/Week Comments Yes 0 (1 standard drink = 0.6 oz pur e alcohol) wkends Estimated Date of Delivery Comme nts Yes 12/04/2023 Based on Ultraso und Sex Assigned at Date Recorded Not on file Job Start Date Occupation Industry Not on file Not on file Not on file documented as of this encounter Last Filed Vital Signs Vital Sign Reading Time Taken Comments Blood Pressure 102/62 06/26/2023 8:04 AM EDT Pulse - - Temperature - - Respiratory Rate - - Oxygen Saturation - - Inhaled Oxygen Concentration - - Weight - - Height 160 cm (5' 3") 06/26/2023 8:04 AM EDT Body Mass Index - - documented in this encounter Progress Notes * RAFIA Fang - 06/26/2023 8:15 AM EDT 17w No concerns. No n/v, still tired. Unsure if feeling movement. Anatomy u/s with next visit. RAFIA Fang * Shabnam Carter LPN - 06/26/2023 8:08 AM EDT 17w0d Pt denies any concerns. documented in this encounter Plan of Treatment Upcoming Encounters Date Type Specialty Care Team Description 07/20/2023 Imaging Radiology 07/20/2023 Office Visit Gynecology Obstetrics Marleny Peres PA-C [address] [place] [address] Scheduled Orders Name Type Priority Associated Diagnoses Orde r Schedule US PREG SINGLE/1ST GEST, 14 WEEKS OR LATER Medical Imaging Routine Encounter for supervision of normal first in second trimester related conditions, unspecified, second trimester Expected: 07/26/2023, Expires: 07/26/2024 Health Maintenance Due Date Last Done Comments Hepatitis B (1 of 3 - 3-dose series) 1997 COVID-19 Vaccine (#1) 1997 DTaP,Tdap,and Td Vaccines (1 - Tdap) 2016 Depression Screening 01/31/2019 01/31/2018 Influenza Vaccine (FLU shot) (#1) 2023 Pap Smear 10/06/2024 10/06/2021, 12/31/2018 GARDASIL-HPV IMMUNIZATION SERIES Completed 06/14/2018, 01/25/2018, 11/26/2017 Gonorrhea / Chlamydia Screen Discontinued , 12/31/2018 Hepatitis C Screening Completed 04/30/2023 , 04/30/2023, 04/30/2023 MENINGOCOCCAL (MENACTRA/MENVEO) Aged Out No longer eligible [...] for supervision of normal first in second trimester- Primary Supervision of normal first related conditions, unspecified, second trimester documented in this encounter
--- OUTSIDE RECORDS SUMMARY | 2023-11-27 04:24 | External Medical Summary | Summary of Care ---
Author Name Unknown Organization [facility] Address [address] [facility] [place] [address] Phone [phone] Care Team Providers Care Hydrology Professor Name Role Phone Unavailable Primary Care Provider Unavailabl e Reason for Visit * Reason Comments Return Visit Encounter Details Date Type Department Care Team (Late st Contact Info) Description 08/20/2023 11:45 AM EST Office Visit Gynecology/Obstetric s [facility] [address] [place] [address] Marleny Peres PA-C [address] [place] [address] Encounter for supervision of normal first in second trimester*; Low-lying placenta Allergies Active Allergy Reactions Criticality Noted Date Comments Diphenhydramine Hcl 01/16/2014 documented as of this encounter (statuses as of 08/20/2023) Medications Medication Sig Dispensed Refills Start Date End Date Status 27-0.8 MG Oral Tablet Take 1 Tablet by mouth daily at noon. 0 Active documented as of this encounter (statuses as of 08/20/2023) Active Problems Problem Noted Date Diagnosed Date Low-lying placenta 07/23/2023 Overview: Seen on anatomy u/s. Recheck 28w Syncope 04/30/2023 Overview: r/t medical procedures Supervision of normal first 04/30/2023 Vertigo Allergic rhinitis Dysfunction of eustachian tube Estimated Date of Delivery Comme nts Yes 12/04/2023 Based on Ultraso und documented as of this encounter (statuses as of 08/20/2023) Resolved Problems Problem Noted Date Diagnosed Date Resolved Date General counseling for presc ription of oral contraceptives 08/24/2015 04/28/2023 documented as of this encounter (statuses as of 08/20/2023) Immunizations Name Administration Dates Next Due HPV Vaccine, 9-Valent 06/14/2018,01/25/2018,11/1505/27/2018 documented as of this encounter Social History Tobacco Use Types Packs/Day Years Used Date Smoking Tobacco: Never Smokeless Tobacco: Never Alcohol Use Standard Drinks/Week Comments Yes 0 (1 standard drink = 0.6 oz pur e alcohol) wkends PHQ-2 Answer Date Recorded PHQ-2 Score 0 08/18/2018 Estimated Date of Delivery Comme nts Yes [...] Sign Reading Time Taken Comments Blood Pressure 100/70 08/20/2023 11:41 AM EST Pulse - - Temperature - - Respiratory Rate - - Oxygen Saturation - - Inhaled Oxygen Concentration - - Weight 68.2 kg (150 lb 6.4 oz) 08/20/2023 11:41 AM EST Height 160 cm (5' 3") 08/20/2023 11:41 AM EST Body Mass Index 26.64 08/20/2023 11:41 AM EST documented in this encounter Progress Notes * Marleny Peres PA-C - 08/20/2023 12:23 PM EST 24w6d No concerns. Had some questions regarding birthing classes/creative lead. She is considering one at time ofdelivery. Recommend she confirm visitation policy with Raheem Lange closer to delivery. Third tri labs and glucola with next visit. Low lying placenta with anatomy, u/s placed in follow up with next appointment. Pt continues pelvicrest. Denies bleeding/leaking/contractions. Baby is active. RTC in 3 weeks Marleny Peres PA-C * Shabnam Carter LPN - 08/20/2023 11:44 AM EST 24w6d Pt wondering about low lying placenta. 28wk packet provided. documented in this encounter Plan of Treatment Upcoming Encounters Date Type Department Care Team (Late st Contact Info) Description 09/12/2023 12:40 PM EST Laboratory Laboratory, [facility] [place] [phone] [facility] [address] [facility] [place] [address] 09/12/2023 12:45 PM EST Imaging Radiology [facility] 2nd Floor, [place] [address] [facility] [place] [address] 09/12/2023 1:45 PM EST Office Visit Gynecology/Obstetrics [facility] [address] [facility] [place] [address] [place], RAFIA Bailey [address] [facility] [place] [address] Scheduled Orders Name Type Priority Associated Diagnoses Orde r Schedule SYPHILIS ANTIBODY SCREEN WITH REFLEX TO RPR Lab Routine Encounter for supervision of normal first in second trimester Expected: 09/03/2023 (Approximate), Expires: 08/20/2024 50-G GESTATIONAL GLUCOSE, 1 HOUR Lab Routine Encounter for supervision of normal first in second trimester Expected: 09/03/2023 (Approximate), Expires: 08/20/2024 CBC WITH WBC DIFFERENTIAL AND ANEMIA REFLEX WORKUP Lab Routine Encounter for supervision of normal first in second trimester Expected: 09/03/2023 (Approximate), Expires: 08/20/2024 US PREG LIMITED 1 OR MORE FETUSES Medical Imaging Routine Low-lying placenta Expected: 09/10/2023, Expires: 09/19/2024 Health Maintenance Due Date Last Done Comments [...] second trimester- Primary Supervision of normal first Low-lying placenta Hemorrhage from placenta previa, unspecified as to episode of care documented in this encounter
--- OUTSIDE RECORDS SUMMARY | 2023-11-27 04:24 | External Medical Summary | Summary of Care ---
Author Name Unknown Organization [facility] Address [address] [facility] [place] [address] Phone [phone] Care Team Providers Care Straight Line Edger Name Role Phone Unavailable Primary Care Provider Unavailabl e Reason for Visit * Reason Comments Return Visit Encounter Details Date Type Department Care Team Description 07/20/2023 Office Visit Gynecology/Obstetrics [facility] [address] [place] [address] Marleny Peres PA-C [address] [place] [address] Encounter for supervision of normal first in second trimester* Allergies Active Allergy Reactions Severity Noted Date Comments Diphenhydramine Hcl 01/16/2014 documented as of this encounter (statuses as of 07/20/2023) Medications Medication Sig Dispensed Refills Start Date End Date Status 27-0.8 MG Oral Tablet Take 1 Tablet by mouth daily at noon. 0 Active documented as of this encounter (statuses as of 07/20/2023) Active Problems Problem Noted Date Syncope 04/30/2023 Overview: r/t medical procedures Supervision of normal first Vertigo Allergic rhinitis Dysfunction of eustachian tube Estimated Date of Delivery Comme nts Yes 12/04/2023 Based on Ultraso und documented as of this encounter (statuses as of 07/20/2023) Resolved Problems Problem Noted Date Resolved Date General counseling for prescription of oral cont raceptives 08/24/2015 04/28/2023 documented as of this encounter (statuses as of 07/20/2023) Immunizations Name Administration Dates Next Due HPV [...] Sign Reading Time Taken Comments Blood Pressure 100/60 07/20/2023 11:52 AM EDT Pulse - - Temperature - - Respiratory Rate - - Oxygen Saturation - - Inhaled Oxygen Concentration - - Weight 64 kg (141 lb) 07/20/2023 11:52 AM EDT Height - - Body Mass Index 24.98 06/26/2023 8:04 AM EDT documented in this encounter Progress Notes * Marleny Peres PA-C - 07/20/2023 12:01 PM EDT 20w3d Denies VB/LOF/contractions. Without complaints concerns. Anatomy today, final report pending. Reviewed genetic screening including MSAFP for ONTD (between 15-22 wks). Pt would like to check insurance prior to completing. Will notify office. RTC in 4 weeks Marleny Peres PA-C * Angélica Hodges LPN - 07/20/2023 11:52 AM EDT Pt is currently 20w3d with an Estimated Date of Delivery: 12/04/23 - Anatomy today documented in this encounter Plan of Treatment Upcoming Encounters Date Type Specialty Care Team Description 08/20/2023 Office Visit Gynecology Obstetrics Marleny Peres PA-C [address] [place] [address] 09/17/2023 Office Visit Gynecology Obstetrics Maria M Sun, [facility] [address] [place] [address] Health Maintenance Due Date Last Done Comments [...] second trimester- Primary Supervision of normal first documented in this encounter
--- OUTSIDE RECORDS SUMMARY | 2023-11-27 04:24 | External Medical Summary | Summary of Care ---
Author Name Unknown Organization [facility] Address [address] [facility] [place] [address] Phone [phone] Care Team Providers Care Typing Bookkeeper Name Role Phone Unavailable Primary Care Provider Unavailabl e Encounter Details Date Type Department Care Team Description 07/23/2023 Telephone Gynecology/Obstetrics [address] [place] [address] Priscilla Mccurdy CRNP [address] [place], [place] [phone] Allergies Active Allergy Reactions Severity Noted Date Comments Diphenhydramine Hcl 01/16/2014 documented as of this encounter (statuses as of 07/23/2023) Medications Medication Sig Dispensed Refills Start Date End Date Status 27-0.8 MG Oral Tablet Take 1 Tablet by mouth daily at noon. 0 Active documented as of this encounter (statuses as of 07/23/2023) Active Problems Problem Noted Date Low-lying placenta 07/23/2023 Overview: Seen on anatomy u/s. Recheck 28w Syncope 04/30/2023 Overview: r/t medical procedures Supervision of normal first Vertigo Allergic rhinitis Dysfunction of eustachian tube Estimated Date of Delivery Comme nts Yes 12/04/2023 Based on Ultraso und documented as of this encounter (statuses as of 07/23/2023) Resolved Problems Problem Noted Date Resolved Date General counseling for prescription of oral cont raceptives 08/24/2015 04/28/2023 documented as of this encounter (statuses as of 07/23/2023) Immunizations Name Administration Dates Next Due HPV [...] on file documented as of this encounter Miscellaneous Notes * Telephone Encounter - Angélica Hodges LPN - 07/23/2023 10:24 AM EDT Patient notified. * Telephone Encounter - Elyse Hassan RN - 07/23/2023 10:19 AM EDT Attempted to call patient. No answer, LVM to return call. * Telephone Encounter - RAFIA Fang - 07/23/2023 10:09 AM EDT Please make pt aware her anatomy u/s showed low lying placenta. Recommend pelvic rest until this resolves. Will recheck on ultrasound around 28 weeks. documented in this encounter Plan of Treatment Upcoming Encounters Date Type Specialty Care Team Description 08/20/2023 Office Visit Gynecology Obstetrics Marleny Peres PA-C [address] [place] [address] 09/17/2023 Office Visit Gynecology Obstetrics Maria M Sun, CNM [address] [place] [address] Health Maintenance Due Date Last Done Comments [...]
--- OUTSIDE RECORDS SUMMARY | 2023-11-27 04:24 | External Medical Summary ---
Author Name Unknown Address Unknown Organization K01:[facility] [place] - [address] [place] [address] Laboratory Report Ordering Provider Test Date Status RENEE MARTÍNEZ 09/12/2023 14:01:50 Final Observation Date Value Abnormality Reference (Units ) Status Folic Acid 09/12/2023 14:01:50 >20.0 >4.5 (ng/ mL) Final Performing Location [facility] - [address] [place] [address]
--- OUTSIDE RECORDS SUMMARY | 2023-11-27 04:24 | External Medical Summary | Summary of Care ---
Author Name Unknown Organization [facility] Address [address] [facility] [place] [address] Phone [phone] Care Team Providers Care Body Finisher Name Role Phone Unavailable Primary Care Provider Unavailabl e Encounter Details Date Type Department Care Team Description 07/23/2023 Telephone Gynecology/Obstetrics [address] [place] [address] Priscilla Mccurdy CRNP [address] [place], [place] [phone] Allergies Active Allergy Reactions Severity Noted Date [...] Peres PA-C [address] [place] [address] 09/17/2023 Office Visit Gynecology Obstetrics Maria M Sun, CNM [address] [place] [address] Health Maintenance Due Date Last Done Comments [...]
--- OUTSIDE RECORDS SUMMARY | 2023-11-27 04:31 | External Medical Summary | Summary of Care ---
Author Name Unknown Organization [facility] Address [address] [facility] [place] [address] Phone [phone] Care Team Providers [facility] Coordinator Name Role Phone Unavailable Primary Care Provider Unavailabl e Reason for Visit * Reason Comments Return Visit Encounter Details Date Type Department Care Team (Late st Contact Info) Description 11/26/2023 9:30 AM EST Office Visit Gynecology/Obstetric Artkamilla Valle [address] [place] [address] Pelon Roland MD [address] [place] [address] Encounter for supervision of normal first in third trimester*; Antepartum anemia complicating Allergies Active Allergy Reactions Criticality Noted Date Comments Diphenhydramine Hcl 01/16/2014 documented as of this encounter (statuses as of 11/26/2023) Medications Medication Sig Dispensed Refills Start Date End Date Status 27-0.8 MG Oral Tablet Take 1 Tablet by mouth daily at noon. 0 Active Iron-Vitamin C 65-125 MG Oral Tablet (Vitron C)Indications:Antepart um anemia complicating Take 1 Tablet by mouth in the morning. 30 Tablet 5 09/13/2023 Active documented as of this encounter (statuses as of 11/26/2023) Active Problems Problem Noted Date Diagnosed Date Antepartum anemia complicating 023 Overview: Iron daily Syncope 04/30/2023 Overview: r/t medical procedures Supervision of normal first 04/30/2023 Vertigo Allergic rhinitis Dysfunction of eustachian tube Estimated Date of Delivery Comme nts Yes 12/04/2023 Based on Ultraso und documented as of this encounter (statuses as of 11/26/2023) Resolved Problems Problem Noted Date Diagnosed Date Resolved Date Low-lying placenta 07/23/2023 Overview: Seen on anatomy u/s. Recheck 28w General counseling for presc ription of oral contraceptives 08/24/2015 04/28/2023 documented as of this encounter (statuses as of 11/26/2023) Immunizations Name Administration Dates Next Due HPV Vaccine, 9-Valent 06/14/2018,01/25/2018,11/1505/27/2018 TDAP (age 10 and older)(Boostrix) 09/26/2023 documented as of this encounter Social History Tobacco Use Types Packs/Day Years Used Date Smoking Tobacco: Never Smokeless Tobacco: Never Alcohol Use Standard Drinks/Week Comments Yes 0 (1 standard drink = 0.6 oz pur e alcohol) wkends PHQ-2 Answer Date Recorded PHQ-2 Score 0 08/18/2018 [place] Depression Scale Answer Date Recorded [place] Depression Scale Total 3 10/22/2023 The thought [...] Sign Reading Time Taken Comments Blood Pressure 128/72 11/26/2023 8:43 AM EST Pulse - - Temperature - - Respiratory Rate - - Oxygen Saturation - - Inhaled Oxygen Concentration - - Weight 78.9 kg (174 lb) 11/26/2023 8:43 AM EST Height 160 cm (5' 3") 11/26/2023 8:43 AM EST Body Mass Index 30.82 11/26/2023 8:43 AM EST documented in this encounter Progress Notes * Pelon Roland MD - 11/26/2023 9:07 AM EST Pt doing well No complaints RTC 1 week documented in this encounter Nursing Notes * Sofi Servin LPN - 11/26/2023 8:47 AM EST 38w6d Denies concerns. Has IOL 38w6d. documented in this encounter Plan of Treatment Upcoming Encounters Date Type Department Care Team (Late st Contact Info) Description 12/03/2023 1:45 PM EST Office Visit Gynecology/Obstetrics [facility] [address] [place] [address] BackRuby macdonald CRNP [address] [place] [address] Health Maintenance Due Date Last Done Comments [...]
[2023-11-27] MEDS ORDERED: diphenhydrAMINE 50 MG/ML VIAL IV PRN ×2 (04:37→20:44)
[2023-11-27] MEDS ORDERED: ROPIVACAINE 0.5% PF 5 MG/ML 20 ML VIAL EPI PRN (04:37)
[2023-11-27] MEDS ORDERED: ePHEDrine sulfate 50 MG/ML AMP IV PRN ×2 (04:37→20:44)
[2023-11-27] MEDS ORDERED: NALOXONE HCL 1 MG in SODIUM CHLORIDE 0.9% 1,000 ML IV PRN ×2 (04:37→20:44)
[2023-11-27] MEDS ORDERED: LIDOCAINE 2% MPF LOCAL 5 ML VIAL EPI PRN (04:37)
[2023-11-27] MEDS ORDERED: NALOXONE HCL 0.4 MG/1 ML VIAL/CARP IV PRN ×2 (04:37→20:44)
[2023-11-27] MEDS ORDERED: NALBUPHINE HCL 5 MG in SYRINGE 0 ML IV PRN ×2 (04:37→20:44)
--- NOTE | 2023-11-27 04:41 | Anesthesiology Consultation ---
Date of Service November 27, 2023 Assessment & Plan ASA ASA2 Proposed Anesthesia Anesthesia Type: Labor Epidural Risk / Benefits Reviewed With: PT / POA / Parent / Guardian, Accepts Plan and Informed Consent Obtained History Height/Weight Height: 5 ft 3 in Weight: 78.925 kg Allergies Allergy/AdvReac Type Severity Reaction Status Date / Time No Known Allergies Allergy Verified 11/26/23 22:22 Medications Home Medications Medication Instructions Recorded Confirmed Last Taken 1 tab PO DAILY 11/26/23 11/26/23 11/26/23 08:00 iron-vit C-vit O17-pwbta acid 1 tab PO DAILY 11/26/23 11/26/23 11/26/23 08:00 Active Medications Generic Name Dose Route Start Last Admin Trade Name Freq PRN Reason Stop Dose Admin Butorphanol Tartrate 1 mg 11/26/23 23:35 11/27/23 01:54 Butorphanol Tartrate 1 Mg/Ml Vial IV 12/26/23 23:34 1 mg Q2HWA PRN Administration Pain Lactated Ringer's 1,000 mls @ 125 mls/hr 11/26/23 20:54 11/27/23 04:58 Lr IV 11/28/23 20:53 150 mls/hr .Q8H PRN Administration L&D Protocol Protocol Oxytocin 30 units in 500 mls @ 2 mls/hr 11/27/23 01:53 11/27/23 04:45 Pitocin 30 Units/Nss IV 11/29/23 01:52 0.12 units/hr .Q24H PRN 2 mls/hr Labor Induction/Augmentation Titration Protocol 0.12 UNITS/HR Past Medical History Medical History Antepartum anemia complicating Dysfunction of eustachian tube Syncope Allergic rhinitis Vertigo Exercise / Class Metabolic Activity II 4-5 Yardwork/Stairs/Walk up hill Past Family History Family History Mother Glaucoma Grandfather (Maternal) Breast cancer Grandfather (Paternal) Prostate cancer Past Surgical History Surgical History H/O wisdom tooth extraction Past Anesthesia History No Hx of Anesthesia Complications and No Family Hx of Anesthesia Complications History of PONV No Hx of PONV and No Hx of Motion Sickness Social History Smoking Status: Never smoker Do You Dip or Chew Tobacco: No Hx Alcohol Use: No Alcohol type: wine alcohol intake frequency: holidays/special occasions only Hx Substance Use: No substance use type: does not use Review of Systems denies fever/cough/ colds/ chest pain/ SOB/ KATIANA denies KATIANA Physical Exam Vital Signs Last Vital Signs Temp 36.8 C 11/27/23 02:30 Pulse 113 H 11/27/23 05:19 Resp 18 11/27/23 02:30 BP 139/78 11/27/23 05:19 Pulse Ox 99 11/27/23 05:18 ENMT Mouth: no TMJ abnormality and no dentition abnormality Thyromental Distance: > or= 3.5 Finger Breadths Mallampati Class: II Neck neck extension not limited Respiratory normal respiratory effort; no respiratory distress Auscultation: lungs clear to auscultation bilaterally Cardiovascular Rate/Rhythm: regular rate and regular rhythm Neurologic moves all extremities Psychiatric Orientation: alert and oriented x 3 Testing Laboratory Results 11/26/23 21:18 11/27/23 00:22
[2023-11-27] MEDS: fentANYL 2 MCG/ML BUPIVacaine 0.125%-NSS 100ML BAG ONE (05:12)
[2023-11-27] MEDS: LIDOCAINE 2%/EPINEPHRINE 1:200,000 20 ML PF ONE (05:15)
[2023-11-27] MEDS: fentaNYL citrate PF 100 MCG/2 ML VIAL ONE (05:15)
[2023-11-27] MEDS: BUPIVACAINE 0.25% PF 30 ML VIAL ONE (05:16)
[2023-11-27] MEDS: ePHEDrine sulfate 50 MG/ML AMP ONE (05:50)
[2023-11-27] MEDS: SODIUM CHLORIDE 0.9% PF INJ 10 ML VIAL ONE (05:50)
[2023-11-27] MEDS: fentaNYL citrate PF 100 MCG/2 ML VIAL EPI STA (05:51)
[2023-11-27] MEDS: BUPIVACAINE 0.25% PF 30 ML VIAL EPI STA (05:51)
[2023-11-27] MEDS: SODIUM CHLORIDE 0.9% PF INJ 10 ML VIAL EPI STA (05:52)
[2023-11-27] MEDS: LIDOCAINE 2%/EPINEPHRINE 1:200,000 20 ML PF EPI STA (05:52)
--- NOTE | 2023-11-27 08:32 | Obstetrical Progress Note ---
Date of Service November 27, 2023 Assessment & Plan (1) Gestational hypertension: Plan: Now meets criteria for elevated blood pressures over 140/90 at least 4 hours apart Initial CBC and chemistry were normal at admission, protein creatinine ratio ordered (2) 39 weeks gestation of : Plan: Continue oxytocin for augmentation Anticipate spontaneous vaginal delivery (3) Antepartum anemia complicating in third trimester: (4) PROM with onset of labor within 24 hours of rupture: Admission and Anticipated Discharge Date Admission Date: November 26, 2023 Subjective Patient comfortable on epidural at this time, no complaints Physical Exam Genitourinary: heart tracing: Baseline 130, minimal to moderate variability, positive accelerations, variable deceleration Tocometer: Contractions every 4 to 5 minutes, oxytocin currently increased to 8 milliunits/h per nursing staff Cervix: 4/60/-2, AROM of forebag performed and IUPC placed. No cord felt, no complications, clear fluid Results & Data Vital Signs (Past 12 Hours) Vital Signs Temp Pulse Resp BP Pulse Ox 11/27/23 08:30 87 94 11/27/23 08:29 89 94 11/27/23 08:24 96 H 94 11/27/23 08:23 98 H 94 11/27/23 08:20 95 H 131/89 11/27/23 08:19 96 H 93 11/27/23 08:16 99 H 94 11/27/23 08:14 92 H 96 11/27/23 08:10 88 94 11/27/23 08:09 92 H 96 11/27/23 08:06 94 H 156/84 H 11/27/23 08:04 98 H 98 11/27/23 08:00 97 H 92 11/27/23 07:59 103 H 97 11/27/23 07:54 93 H 98 11/27/23 07:52 94 H 93 11/27/23 07:50 92 H 135/66 11/27/23 07:49 88 98 11/27/23 07:44 100 11/27/23 07:44 88 11/27/23 07:44 92 H 91 11/27/23 07:39 95 H 100 11/27/23 07:35 82 132/71 11/27/23 07:34 88 100 11/27/23 07:33 94 H 93 11/27/23 07:29 89 97 11/27/23 07:26 91 H 93 11/27/23 07:24 92 H 97 11/27/23 07:20 88 131/62 11/27/23 07:19 93 H 97 11/27/23 07:18 90 92 11/27/23 07:15 36.7 C 16 11/27/23 07:13 92 H 99 11/27/23 07:08 100 H 100 11/27/23 07:05 88 138/80 11/27/23 07:03 92 H 97 11/27/23 07:00 18 11/27/23 07:00 18 11/27/23 06:58 91 H 98 11/27/23 06:53 93 H 97 11/27/23 06:50 93 H 127/70 11/27/23 06:48 92 H 96 11/27/23 06:43 91 H 97 11/27/23 06:38 86 96 11/27/23 06:37 95 H 117/57 L 11/27/23 06:33 93 H 98 11/27/23 06:32 94 H 94 11/27/23 06:30 18 11/27/23 06:30 18 11/27/23 06:28 95 H 95 11/27/23 06:24 86 94 11/27/23 06:23 83 95 11/27/23 06:20 90 130/67 11/27/23 06:18 96 11/27/23 06:18 87 11/27/23 06:18 87 94 11/27/23 06:13 93 H 95 11/27/23 06:09 99 H 94 11/27/23 06:08 97 H 94 11/27/23 06:03 108 H 92 11/27/23 06:00 98 H 93 11/27/23 05:58 105 H 99 11/27/23 05:53 105 H 96 11/27/23 05:49 100 H 145/75 H 11/27/23 05:48 105 H 96 11/27/23 05:43 104 H 95 11/27/23 05:38 108 H 100 11/27/23 05:35 104 H 140/75 11/27/23 05:33 112 H 98 11/27/23 05:30 18 11/27/23 05:30 36.7 C 18 11/27/23 05:28 116 H 95 11/27/23 05:23 115 H 95 11/27/23 05:19 113 H 139/78 11/27/23 05:18 116 H 99 11/27/23 05:16 116 H 142/79 H 11/27/23 05:13 111 H 152/83 H 98 11/27/23 05:09 115 H 157/78 H 11/27/23 05:08 111 H 98 11/27/23 05:07 118 H 159/75 H 11/27/23 05:03 107 H 96 11/27/23 04:58 115 H 100 11/27/23 04:53 105 H 100 11/27/23 04:48 104 H 100 11/27/23 04:43 113 H 100 11/27/23 04:20 92 H 130/73 11/27/23 02:30 18 11/27/23 02:30 36.8 C 18 11/27/23 01:46 95 H 138/68 11/26/23 23:15 91 H 147/75 H 11/26/23 23:10 18 11/26/23 23:10 36.7 C 18 11/26/23 21:06 36.8 C 18 11/26/23 20:45 18 11/26/23 20:45 36.8 C 18 (1) Gestational hypertension Trimester: third trimester Qualified Code(s): O13.3 - Gestational [- induced] hypertension without significant proteinuria, third trimester (4) PROM with onset of labor within 24 hours of rupture PROM gestational age: full term Qualified Code(s): O42.02 - Full-term premature rupture of membranes, onset of labor within 24 hours of rupture
[2023-11-27 10:19] LABS: Total Protein Urine Random < 4.0 mg/dl (0-11.9)
[2023-11-27] MEDS: fentANYL 2 MCG/ML BUPIVacaine 0.125%-NSS 100ML BAG EPI PRN (10:42)
[2023-11-27] MEDS ORDERED: NURSING L&D Epidural Breakthrough Pain Update ONE (12:50)
--- NOTE | 2023-11-27 13:45 | Anesthesia Procedure Note ---
Date of Service November 27, 2023 Anesthesia Epidural Re-Dose Vital Signs Temp Pulse Resp BP Pulse Ox 36.8 C 98 H 18 124/77 99 11/27/23 13:01 11/27/23 13:39 11/27/23 13:00 11/27/23 13:35 11/27/23 13:39 Notes Pain Intensity: 4 Dilatation (cm): 7.0 Effacement (%): 100 Called by nursing to evaluate epidural as the patient is having increased pain. The epidural was re-dosed with the following medications (all medications via epidural route) after negative aspiration of the epidural catheter for CSF/HEME. 0.2 Ropivacaine ml via epidural After Epidural Re-Dose Mental Status: alert / awake / arousable and participated in evaluation Pain: improving with treatment Airway Patency, RR, SpO2: stable & adequate BP & HR: stable & adequate Additional Notes: Patient with L1 level to ice b/l. epidural had been working well prior. Redosed with 10 cc of 0.125 bupi. Pain improved. bp stable.
[2023-11-27] MEDS: SODIUM CHLORIDE 0.9% PF INJ 10 ML VIAL EPI PRN (13:47)
[2023-11-27] MEDS: BUPIVACAINE 0.25% PF 30 ML VIAL EPI PRN (13:47)
[2023-11-27] MEDS: fentaNYL citrate PF 100 MCG/2 ML VIAL EPI PRN (16:06)
--- NOTE | 2023-11-27 16:30 | Anesthesia Procedure Note ---
Date of Service November 27, 2023 Anesthesia Epidural Re-Dose Vital Signs Temp Pulse Resp BP Pulse Ox 36.8 C 85 20 127/64 95 11/27/23 15:30 11/27/23 16:24 11/27/23 16:00 11/27/23 16:19 11/27/23 16:24 Notes Pain Intensity: 6 Dilatation (cm): 7.0 Effacement (%): 100 Called by nursing to evaluate epidural as the patient is having increased pain. The epidural was re-dosed with the following medications (all medications via epidural route) after negative aspiration of the epidural catheter for CSF/HEME. 0.2 Ropivacaine ml via epidural After Epidural Re-Dose Mental Status: alert / awake / arousable and participated in evaluation Pain: improving with treatment Airway Patency, RR, SpO2: stable & adequate BP & HR: stable & adequate Additional Notes: asked to assess patient for pain. most recent bolus relieved pain for approximately 1 hour but now patient reports pain under umbilicus. Sensory level T10 on right, T12 on left to ice. Pulled catheter back 1 cm and redosed with 8 cc of 0.125 bupi and 100 mcg fentanyl. Will reassess. Discussed possibly replacing epidural if no relief.
--- NOTE | 2023-11-27 16:45 | Obstetrical Progress Note ---
Date of Service November 27, 2023 Assessment & Plan (1) Gestational hypertension: Plan: Now meets criteria for elevated blood pressures over 140/90 at least 4 hours apart CBC and chemistry daily, no severe range blood pressures (2) 39 weeks gestation of : Plan: Continue oxytocin for augmentation Anticipate spontaneous vaginal delivery (3) Antepartum anemia complicating in third trimester: (4) PROM with onset of labor within 24 hours of rupture: Admission and Anticipated Discharge Date Admission Date: November 26, 2023 Subjective Patient now is comfortable with every dose of her epidural. She has remained category 1 tracing throughout the day and she has made cervical change with oxytocin augmentation Physical Exam Genitourinary: heart tracing: Baseline 130, moderate variability, positive accelerations, variable deceleration x 1 Axis: Contractions every 2 to 3 minutes, oxytocin currently at 20 milliunits/h Cervix anterior lip/100/+1 AROM performed of forebag, no cord felt. Was able to reduce the anterior lip however was not able to remain reducible not during contractions. Results & Data Vital Signs (Past 12 Hours) Vital Signs Temp Pulse Resp BP Pulse Ox 11/27/23 16:39 95 H 100 11/27/23 16:35 79 105/59 L 11/27/23 16:34 83 97 11/27/23 16:30 18 11/27/23 16:30 18 11/27/23 16:29 74 100 11/27/23 16:24 85 95 11/27/23 16:22 92 H 93 11/27/23 16:19 77 127/64 100 11/27/23 16:15 78 92 11/27/23 16:14 77 98 11/27/23 16:09 98 11/27/23 16:09 86 11/27/23 16:09 82 94 11/27/23 16:06 78 136/66 11/27/23 16:04 83 100 11/27/23 16:03 85 93 11/27/23 16:00 20 11/27/23 16:00 20 11/27/23 15:59 88 100 11/27/23 15:54 89 98 11/27/23 15:52 44 L 80 L 11/27/23 15:49 90 100 11/27/23 15:44 88 100 11/27/23 15:39 92 H 99 11/27/23 15:36 86 140/77 11/27/23 15:34 93 H 100 11/27/23 15:30 18 11/27/23 15:30 36.8 C 18 11/27/23 15:29 100 11/27/23 15:29 93 H 11/27/23 15:29 93 H 92 11/27/23 15:24 90 99 11/27/23 15:20 89 144/81 H 11/27/23 15:19 88 100 11/27/23 15:14 83 98 11/27/23 15:09 85 98 11/27/23 15:04 90 133/69 97 11/27/23 15:00 18 11/27/23 15:00 36.8 C 18 11/27/23 14:59 83 97 11/27/23 14:54 88 96 11/27/23 14:49 90 147/74 H 99 11/27/23 14:45 100 H 92 11/27/23 14:44 96 H 99 11/27/23 14:39 94 H 98 11/27/23 14:38 94 H 93 11/27/23 14:35 87 138/66 11/27/23 14:34 88 100 11/27/23 14:32 88 91 11/27/23 14:30 18 11/27/23 14:30 18 11/27/23 14:29 92 H 98 11/27/23 14:26 90 93 11/27/23 14:24 86 100 11/27/23 14:21 88 123/60 92 11/27/23 14:19 90 100 11/27/23 14:14 92 H 98 11/27/23 14:09 86 100 11/27/23 14:05 85 145/66 H 11/27/23 14:04 87 100 11/27/23 14:02 86 90 11/27/23 14:00 20 11/27/23 14:00 20 11/27/23 13:59 87 99 11/27/23 13:54 79 100 11/27/23 13:52 89 110/66 11/27/23 13:49 91 H 97 11/27/23 13:48 91 H 139/81 11/27/23 13:45 93 H 142/77 H 11/27/23 13:44 91 H 99 11/27/23 13:39 98 H 99 11/27/23 13:35 95 H 124/77 11/27/23 13:34 101 H 100 11/27/23 13:30 20 11/27/23 13:30 20 11/27/23 13:29 101 H 100 11/27/23 13:24 112 H 100 11/27/23 13:23 91 H 90 11/27/23 13:20 95 H 141/78 H 11/27/23 13:19 97 H 100 11/27/23 13:14 99 H 92 11/27/23 13:09 106 H 96 11/27/23 13:07 96 H 92 11/27/23 13:05 103 H 137/76 11/27/23 13:04 101 H 99 11/27/23 13:01 36.8 C 11/27/23 13:00 18 11/27/23 13:00 18 11/27/23 12:59 106 H 97 11/27/23 12:57 107 H 94 11/27/23 12:54 91 H 99 11/27/23 12:50 92 11/27/23 12:50 94 H 11/27/23 12:50 88 138/78 11/27/23 12:49 89 97 11/27/23 12:45 88 89 L 11/27/23 12:44 89 100 11/27/23 12:39 92 H 100 11/27/23 12:38 95 H 93 11/27/23 12:34 91 H 141/75 H 99 11/27/23 12:31 94 H 93 11/27/23 12:30 18 11/27/23 12:30 18 11/27/23 12:29 81 95 11/27/23 12:24 89 93 11/27/23 12:23 83 94 11/27/23 12:20 88 138/75 11/27/23 12:19 86 97 11/27/23 12:14 90 98 11/27/23 12:09 89 96 11/27/23 12:04 98 H 141/78 H 96 11/27/23 12:00 16 11/27/23 12:00 16 11/27/23 11:59 89 96 11/27/23 11:58 82 94 11/27/23 11:54 82 95 11/27/23 11:50 82 139/73 11/27/23 11:49 86 97 02/13/24 11:47 91 H 92 11/27/23 11:44 83 97 11/27/23 11:39 86 97 11/27/23 11:38 86 91 11/27/23 11:34 81 129/66 93 11/27/23 11:32 74 94 11/27/23 11:30 16 11/27/23 11:30 16 11/27/23 11:29 80 95 11/27/23 11:26 74 94 11/27/23 11:24 83 95 11/27/23 11:19 82 138/72 95 11/27/23 11:14 79 95 11/27/23 11:09 77 95 11/27/23 11:06 74 128/68 11/27/23 11:04 81 98 11/27/23 11:00 36.7 C 82 16 94 11/27/23 10:59 82 96 11/27/23 10:54 82 96 11/27/23 10:49 81 129/71 97 11/27/23 10:44 88 98 11/27/23 10:39 79 99 11/27/23 10:35 82 125/69 11/27/23 10:34 86 100 11/27/23 10:30 16 11/27/23 10:30 16 11/27/23 10:29 80 98 11/27/23 10:28 80 94 11/27/23 10:24 74 94 11/27/23 10:22 83 94 11/27/23 10:20 76 130/66 11/27/23 10:19 80 96 11/27/23 10:17 76 94 11/27/23 10:14 82 97 11/27/23 10:12 78 94 11/27/23 10:09 81 96 11/27/23 10:04 95 11/27/23 10:04 80 11/27/23 10:04 83 123/68 94 11/27/23 10:00 16 11/27/23 10:00 16 11/27/23 09:59 86 91 11/27/23 09:57 78 94 11/27/23 09:54 77 94 11/27/23 09:50 79 94 11/27/23 09:49 76 131/68 96 11/27/23 09:44 96 11/27/23 09:44 92 H 11/27/23 09:44 82 94 11/27/23 09:39 89 97 11/27/23 09:35 81 134/64 11/27/23 09:34 86 95 11/27/23 09:30 88 16 94 11/27/23 09:29 93 H 94 11/27/23 09:24 79 92 11/27/23 09:19 85 126/58 L 95 11/27/23 09:14 80 93 11/27/23 09:12 82 93 11/27/23 09:09 83 95 11/27/23 09:07 81 94 11/27/23 09:04 91 H 133/63 96 11/27/23 09:00 16 11/27/23 09:00 36.8 C 16 11/27/23 08:59 82 94 11/27/23 08:54 83 94 11/27/23 08:53 91 H 93 11/27/23 08:49 88 127/66 93 11/27/23 08:48 101 H 94 11/27/23 08:44 95 H 93 11/27/23 08:43 95 H 94 11/27/23 08:39 88 93 11/27/23 08:35 96 H 11/27/23 08:35 93 H 139/71 94 11/27/23 08:34 96 H 94 11/27/23 08:30 87 94 11/27/23 08:29 89 94 11/27/23 08:24 96 H 94 11/27/23 08:23 98 H 94 11/27/23 08:20 95 H 131/89 11/27/23 08:19 96 H 93 11/27/23 08:16 99 H 94 11/27/23 08:14 92 H 96 11/27/23 08:10 88 94 11/27/23 08:09 92 H 96 11/27/23 08:06 94 H 156/84 H 11/27/23 08:04 98 H 98 11/27/23 08:00 97 H 16 92 11/27/23 07:59 103 H 97 11/27/23 07:54 93 H 98 11/27/23 07:52 94 H 93 11/27/23 07:50 92 H 135/66 11/27/23 07:49 88 98 11/27/23 07:44 100 11/27/23 07:44 88 11/27/23 07:44 92 H 91 11/27/23 07:39 95 H 100 11/27/23 07:35 82 132/71 11/27/23 07:34 88 100 11/27/23 07:33 94 H 93 11/27/23 07:29 89 97 11/27/23 07:26 91 H 93 11/27/23 07:24 92 H 97 11/27/23 07:20 88 131/62 11/27/23 07:19 93 H 97 11/27/23 07:18 90 92 11/27/23 07:15 36.7 C 16 11/27/23 07:13 92 H 99 11/27/23 07:08 100 H 100 11/27/23 07:05 88 138/80 11/27/23 07:03 92 H 97 11/27/23 07:00 18 11/27/23 07:00 18 11/27/23 06:58 91 H 98 11/27/23 06:53 93 H 97 11/27/23 06:50 93 H 127/70 11/27/23 06:48 92 H 96 11/27/23 06:43 91 H 97 11/27/23 06:38 86 96 11/27/23 06:37 95 H 117/57 L 11/27/23 06:33 93 H 98 11/27/23 06:32 94 H 94 11/27/23 06:30 18 11/27/23 06:30 18 11/27/23 06:28 95 H 95 11/27/23 06:24 86 94 11/27/23 06:23 83 95 11/27/23 06:20 90 130/67 11/27/23 06:18 96 11/27/23 06:18 87 11/27/23 06:18 87 94 11/27/23 06:13 93 H 95 11/27/23 06:09 99 H 94 11/27/23 06:08 97 H 94 11/27/23 06:03 108 H 92 11/27/23 06:00 98 H 93 11/27/23 05:58 105 H 99 11/27/23 05:53 105 H 96 11/27/23 05:49 100 H 145/75 H 11/27/23 05:48 105 H 96 11/27/23 05:43 104 H 95 11/27/23 05:38 108 H 100 11/27/23 05:35 104 H 140/75 11/27/23 05:33 112 H 98 11/27/23 05:30 18 11/27/23 05:30 36.7 C 18 11/27/23 05:28 116 H 95 11/27/23 05:23 115 H 95 11/27/23 05:19 113 H 139/78 11/27/23 05:18 116 H 99 11/27/23 05:16 116 H 142/79 H 11/27/23 05:13 111 H 152/83 H 98 11/27/23 05:09 115 H 157/78 H 11/27/23 05:08 111 H 98 11/27/23 05:07 118 H 159/75 H 11/27/23 05:03 107 H 96 11/27/23 04:58 115 H 100 11/27/23 04:53 105 H 100 11/27/23 04:48 104 H 100 (1) Gestational hypertension Trimester: third trimester Qualified Code(s): O13.3 - Gestational [- induced] hypertension without significant proteinuria, third trimester (4) PROM with onset of labor within 24 hours of rupture PROM gestational age: full term Qualified Code(s): O42.02 - Full-term premature rupture of membranes, onset of labor within 24 hours of rupture
--- NOTE | 2023-11-27 20:30 | Communication Note ---
Date of Service: November 27, 2023 Decision to proceed with C section due to failure to descend and maternal exhaustion. Will plan to use epidural for surgery. Anesthesia plan: Regional, back up [place] ASA 2E
[2023-11-27] MEDS: ONDANSETRON INJ 2 MG/ML 2 ML VIAL IV PRN (20:31)
--- NOTE | 2023-11-27 20:34 | Obstetrical Progress Note ---
Date of Service November 27, 2023 Assessment & Plan (1) Gestational hypertension: Plan: Now meets criteria for elevated blood pressures over 140/90 at least 4 hours apart CBC and chemistry daily, no severe range blood pressures (2) 39 weeks gestation of : Plan: Discussed continue pushing, however patient is exhausted. Would like to proceed with section due to failure to decent with 2 hrs pushing. Knows is not ctirteia for >3 hrs, but she is exhausted and wants section at this time Consents signed at bedside 2gr ancef, 500mg ancef (3) Antepartum anemia complicating in third trimester: (4) PROM with onset of labor within 24 hours of rupture: Admission and Anticipated Discharge Date Admission Date: November 26, 2023 Subjective Patient has pushed for approx for 2 hours with no descent and exhaustion. Physical Exam Genitourinary: FHT: baseline 155, min to mod variability, no accels, early decels with pushing, cat II [place]: q2-3 pit at 20 cx: 10/100/0 with caput + Results & Data Vital Signs (Past 12 Hours) Vital Signs Temp Pulse Resp BP Pulse Ox 11/27/23 20:29 109 H 82 L 11/27/23 20:26 115 H 87 L 11/27/23 20:24 109 H 84 L 11/27/23 20:21 106 H 85 L 11/27/23 20:19 102 H 98 11/27/23 20:14 88 94 11/27/23 20:11 96 H 88 L 11/27/23 20:09 109 H 84 L 11/27/23 20:05 93 H 119/61 11/27/23 20:04 96 H 87 L 11/27/23 20:00 16 11/27/23 20:00 16 11/27/23 19:59 100 H 85 L 11/27/23 19:54 116 H 93 11/27/23 19:52 118 H 87 L 11/27/23 19:50 101 H 135/91 11/27/23 19:49 111 H 97 11/27/23 19:45 16 11/27/23 19:45 16 11/27/23 19:44 104 H 91 11/27/23 19:39 104 H 87 L 11/27/23 19:34 121 H 89 L 11/27/23 19:30 16 11/27/23 19:30 37.1 C 16 11/27/23 19:29 109 H 97 11/27/23 19:24 116 H 86 L 11/27/23 19:22 106 H 85 L 11/27/23 19:19 122 H 92 11/27/23 19:15 16 11/27/23 19:15 16 11/27/23 19:14 131 H 95 11/27/23 19:09 104 H 92 11/27/23 19:06 127 H 142/79 H 11/27/23 19:05 125 H 87 L 11/27/23 19:04 117 H 89 L 11/27/23 19:00 20 11/27/23 19:00 20 11/27/23 18:59 120 H 98 11/27/23 18:54 111 H 94 11/27/23 18:52 121 H 131/97 11/27/23 18:49 114 H 93 11/27/23 18:44 142 H 92 11/27/23 18:41 131 H 88 L 11/27/23 18:39 113 H 95 11/27/23 18:36 131 H 90 11/27/23 18:34 104 H 97 11/27/23 18:31 98 H 94 11/27/23 18:30 18 11/27/23 18:30 18 11/27/23 18:29 126 H 85 L 11/27/23 18:26 109 H 93 11/27/23 18:25 37.0 C 11/27/23 18:24 129 H 98 11/27/23 18:20 105 H 94 11/27/23 18:19 99 H 154/81 H 94 11/27/23 18:14 128 H 97 11/27/23 18:09 109 H 100 11/27/23 18:05 106 H 169/88 H 11/27/23 18:04 107 H 94 11/27/23 18:01 100 H 92 11/27/23 18:00 16 11/27/23 18:00 16 11/27/23 17:59 99 H 90 11/27/23 17:55 104 H 91 11/27/23 17:54 94 H 99 11/27/23 17:50 96 H 133/72 11/27/23 17:49 95 H 98 11/27/23 17:45 97 H 89 L 11/27/23 17:44 99 H 98 11/27/23 17:39 86 97 11/27/23 17:36 92 H 89 L 11/27/23 17:35 87 133/68 11/27/23 17:34 100 H 98 11/27/23 17:29 87 98 11/27/23 17:24 83 97 11/27/23 17:19 96 11/27/23 17:19 82 11/27/23 17:19 80 137/73 11/27/23 17:14 79 99 11/27/23 17:09 90 100 11/27/23 17:04 95 H 124/67 100 11/27/23 17:00 18 11/27/23 17:00 18 11/27/23 16:59 95 H 100 11/27/23 16:54 81 100 11/27/23 16:52 91 H 93 11/27/23 16:51 93 H 116/68 11/27/23 16:49 86 100 11/27/23 16:44 99 11/27/23 16:44 90 11/27/23 16:44 92 H 94 11/27/23 16:39 95 H 100 11/27/23 16:35 79 105/59 L 11/27/23 16:34 83 97 11/27/23 16:30 18 11/27/23 16:30 18 11/27/23 16:29 74 100 11/27/23 16:24 85 95 11/27/23 16:22 92 H 93 11/27/23 16:19 77 127/64 100 11/27/23 16:15 78 92 11/27/23 16:14 77 98 11/27/23 16:09 98 11/27/23 16:09 86 11/27/23 16:09 82 94 11/27/23 16:06 78 136/66 11/27/23 16:04 83 100 11/27/23 16:03 85 93 11/27/23 16:00 20 11/27/23 16:00 20 11/27/23 15:59 88 100 11/27/23 15:54 89 98 11/27/23 15:52 44 L 80 L 11/27/23 15:49 90 100 11/27/23 15:44 88 100 11/27/23 15:39 92 H 99 11/27/23 15:36 86 140/77 11/27/23 15:34 93 H 100 11/27/23 15:30 18 11/27/23 15:30 36.8 C 18 11/27/23 15:29 100 11/27/23 15:29 93 H 11/27/23 15:29 93 H 92 11/27/23 15:24 90 99 11/27/23 15:20 89 144/81 H 11/27/23 15:19 88 100 11/27/23 15:14 83 98 11/27/23 15:09 85 98 11/27/23 15:04 90 133/69 97 11/27/23 15:00 18 11/27/23 15:00 36.8 C 18 11/27/23 14:59 83 97 11/27/23 14:54 88 96 11/27/23 14:49 90 147/74 H 99 11/27/23 14:45 100 H 92 11/27/23 14:44 96 H 99 11/27/23 14:39 94 H 98 11/27/23 14:38 94 H 93 11/27/23 14:35 87 138/66 11/27/23 14:34 88 100 11/27/23 14:32 88 91 11/27/23 14:30 18 11/27/23 14:30 18 11/27/23 14:29 92 H 98 11/27/23 14:26 90 93 11/27/23 14:24 86 100 11/27/23 14:21 88 123/60 92 11/27/23 14:19 90 100 11/27/23 14:14 92 H 98 11/27/23 14:09 86 100 11/27/23 14:05 85 145/66 H 11/27/23 14:04 87 100 11/27/23 14:02 86 90 11/27/23 14:00 20 11/27/23 14:00 20 11/27/23 13:59 87 99 11/27/23 13:54 79 100 11/27/23 13:52 89 110/66 11/27/23 13:49 91 H 97 11/27/23 13:48 91 H 139/81 11/27/23 13:45 93 H 142/77 H 11/27/23 13:44 91 H 99 0213/24 13:39 98 H 99 11/27/23 13:35 95 H 124/77 11/27/23 13:34 101 H 100 11/27/23 13:30 20 11/27/23 13:30 20 11/27/23 13:29 101 H 100 11/27/23 13:24 112 H 100 11/27/23 13:23 91 H 90 11/27/23 13:20 95 H 141/78 H 11/27/23 13:19 97 H 100 11/27/23 13:14 99 H 92 11/27/23 13:09 106 H 96 11/27/23 13:07 96 H 92 11/27/23 13:05 103 H 137/76 11/27/23 13:04 101 H 99 11/27/23 13:01 36.8 C 11/27/23 13:00 18 11/27/23 13:00 18 11/27/23 12:59 106 H 97 11/27/23 12:57 107 H 94 11/27/23 12:54 91 H 99 11/27/23 12:50 92 11/27/23 12:50 94 H 11/27/23 12:50 88 138/78 11/27/23 12:49 89 97 11/27/23 12:45 88 89 L 11/27/23 12:44 89 100 11/27/23 12:39 92 H 100 11/27/23 12:38 95 H 93 11/27/23 12:34 91 H 141/75 H 99 11/27/23 12:31 94 H 93 11/27/23 12:30 18 11/27/23 12:30 18 11/27/23 12:29 81 95 11/27/23 12:24 89 93 11/27/23 12:23 83 94 11/27/23 12:20 88 138/75 11/27/23 12:19 86 97 11/27/23 12:14 90 98 11/27/23 12:09 89 96 11/27/23 12:04 98 H 141/78 H 96 11/27/23 12:00 16 11/27/23 12:00 16 11/27/23 11:59 89 96 11/27/23 11:58 82 94 11/27/23 11:54 82 95 11/27/23 11:50 82 139/73 11/27/23 11:49 86 97 11/27/23 11:47 91 H 92 11/27/23 11:44 83 97 11/27/23 11:39 86 97 11/27/23 11:38 86 91 11/27/23 11:34 81 129/66 93 11/27/23 11:32 74 94 11/27/23 11:30 16 11/27/23 11:30 16 11/27/23 11:29 80 95 11/27/23 11:26 74 94 11/27/23 11:24 83 95 11/27/23 11:19 82 138/72 95 11/27/23 11:14 79 95 11/27/23 11:09 77 95 11/27/23 11:06 74 128/68 11/27/23 11:04 81 98 11/27/23 11:00 36.7 C 82 16 94 11/27/23 10:59 82 96 11/27/23 10:54 82 96 11/27/23 10:49 81 129/71 97 11/27/23 10:44 88 98 11/27/23 10:39 79 99 11/27/23 10:35 82 125/69 11/27/23 10:34 86 100 11/27/23 10:30 16 11/27/23 10:30 16 11/27/23 10:29 80 98 11/27/23 10:28 80 94 11/27/23 10:24 74 94 11/27/23 10:22 83 94 11/27/23 10:20 76 130/66 11/27/23 10:19 80 96 11/27/23 10:17 76 94 11/27/23 10:14 82 97 11/27/23 10:12 78 94 11/27/23 10:09 81 96 11/27/23 10:04 95 11/27/23 10:04 80 11/27/23 10:04 83 123/68 94 11/27/23 10:00 16 11/27/23 10:00 16 11/27/23 09:59 86 91 11/27/23 09:57 78 94 11/27/23 09:54 77 94 11/27/23 09:50 79 94 11/27/23 09:49 76 131/68 96 11/27/23 09:44 96 11/27/23 09:44 92 H 11/27/23 09:44 82 94 11/27/23 09:39 89 97 11/27/23 09:35 81 134/64 11/27/23 09:34 86 95 11/27/23 09:30 88 16 94 11/27/23 09:29 93 H 94 11/27/23 09:24 79 92 11/27/23 09:19 85 126/58 L 95 11/27/23 09:14 80 93 11/27/23 09:12 82 93 11/27/23 09:09 83 95 11/27/23 09:07 81 94 11/27/23 09:04 91 H 133/63 96 11/27/23 09:00 16 11/27/23 09:00 36.8 C 16 11/27/23 08:59 82 94 11/27/23 08:54 83 94 11/27/23 08:53 91 H 93 11/27/23 08:49 88 127/66 93 11/27/23 08:48 101 H 94 11/27/23 08:44 95 H 93 11/27/23 08:43 95 H 94 11/27/23 08:39 88 93 11/27/23 08:35 96 H 11/27/23 08:35 93 H 139/71 94 11/27/23 08:34 96 H 94 (1) Gestational hypertension Trimester: third trimester Qualified Code(s): O13.3 - Gestational [- induced] hypertension without significant proteinuria, third trimester (4) PROM with onset of labor within 24 hours of rupture PROM gestational age: full term Qualified Code(s): O42.02 - Full-term premature rupture of membranes, onset of labor within 24 hours of rupture
--- NOTE | 2023-11-27 20:35 | Discharge Summary ---
Date of Service November 30, 2023 Admission HPI Per Admitting Provider Patient is a 28 yo at 38.6 wks with EDC of 12/04 She started to have LOF at around 6 pm and contractions started around 9 pm. She walked into L&D and she was grossly ruptured per her nurse, Nitrazine + Her cervix was ft/ thick/ -3, posterior She has been still leaking clear fluid Ctxs are not painful. Denies vaginal bleeding, fever chills, abdominal pain, headaches, change in vision, nausea vomiting. She reports good movements. Her has been uncomplicated, denies any medical problems, surgeries GBS neg Discharge Data Consultations 11/26/23 20:55 Consult Anesthesiology Stat Procedures Performed Operation Date: 11/27/23 20:30 Primary lower transverse section via Pfannenstiel incision Hospital Course (1) Gestational hypertension: Now meets criteria for elevated blood pressures over 140/90 at least 4 hours apart CBC and chemistry daily, no severe range blood pressures (2) 39 weeks gestation of : Discussed continue pushing, however patient is exhausted. Would like to proceed with section due to failure to decent with 2 hrs pushing. Knows is not ctirteia for >3 hrs, but she is exhausted and wants section at this time Consents signed at bedside 2gr ancef, 500mg ancef (3) Antepartum anemia complicating in third trimester: (4) PROM with onset of labor within 24 hours of rupture: (5) Category II heart rate tracing during labor and delivery: (6) Failure of descent in labor, delivered, current hospitalization: (7) Maternal exhaustion complicating labor and delivery: (8) Uterine atony: (9) hemorrhage:
[2023-11-27] MEDS ORDERED: CITRIC ACID/SODIUM CITRATE 15 ML UDC ONE (20:40)
[2023-11-27] MEDS ORDERED: KETOROLAC 30 MG/ML VIAL ONE (20:41)
[2023-11-27] MEDS ORDERED: DEXAMETHASONE SOD INJ 4 MG/ML VIAL ONE (20:41)
[2023-11-27] MEDS ORDERED: LIDOCAINE 2%/EPINEPHRINE 1:200,000 20 ML PF ONE (20:41)
[2023-11-27] MEDS ORDERED: GLYCOPYRROLATE 0.2 MG/ML VIAL ONE (20:41)
[2023-11-27] MEDS: ceFAZolin 2000MG 2,000 MG/15 ML SYR IV ONE (20:41)
[2023-11-27] MEDS ORDERED: ONDANSETRON INJ 2 MG/ML 2 ML VIAL ONE (20:41)
[2023-11-27] MEDS ORDERED: MoRPHine SULFATE PF 1 MG/ML 10 ML AMP/VIAL ONE (20:41)
[2023-11-27] MEDS ORDERED: NALOXONE HCL 0.08 MG in SYRINGE 1.8 ML IV PRN (20:44)
[2023-11-27] MEDS ORDERED: MoRPHine SULFATE PF 1 MG/ML 10 ML AMP/VIAL EPI ONE (20:44)
[2023-11-27] MEDS ORDERED: LACTATED RINGER'S 500 ML IV PRN (20:44)
[2023-11-27] MEDS ORDERED: SODIUM CHLORIDE 0.9% 1,000 ML IV SCH (20:45)
[2023-11-27] MEDS ORDERED: NO NARCOTICS OR SEDATIVES SCH (20:45)
[2023-11-27] MEDS ORDERED: DC INTRASPINAL MORPHINE SCH (20:45)
[2023-11-27] MEDS: AZITHROMYCIN 500 MG in DEXTROSE 5% 250 ML IV STA (20:46)
[2023-11-27] MEDS ORDERED: TRANEXAMIC ACID / 0.7% NACL 1000MG/100ML BAG IV ONE (21:29)
[2023-11-27] MEDS ORDERED: HYDROCORTISONE ACETATE 25 MG SUPP PR PRN (21:36)
[2023-11-27] MEDS ORDERED: BENZOCAINE 20% SPRY 85 APPLN/85 GM CAN EXT PRN (21:36)
[2023-11-27] MEDS ORDERED: MAGNESIUM HYDROXIDE SUSP 30 ML UDC PO PRN (21:36)
[2023-11-27] MEDS ORDERED: DIPHTHER/TETAN/PERTUS Vaccine (Tdap, Adol/Adult) 0.5mL IM ONE (21:36)
[2023-11-27] MEDS ORDERED: SENNA 8.6 MG TAB PO PRN (21:36)
--- NOTE | 2023-11-27 21:48 | Operative Report ---
Post Operative Report Pre & Post Diagnosis Pre-op diagnosis 1. 28-year-old G1, P0 at 39 weeks and 0 days 2. Premature rupture of membranes 3. Category 2 tracing 4. Failure to descend 5. Maternal exhaustion 6. Gestational hypertension 7. Antepartum anemia Postop diagnosis: Same as above and delivered 8. Uterine atony 9. hemorrhage 1 L 10. CPD I identified the patient and participated in the time-out.: Yes Procedure Operation Date: 11/27/23 20:30 Actual Procedures Primary lower transverse delivery via Pfannenstiel incision Nohemy Frederick MD, PhD Surgeon Nohemy Frederick MD, PhD Drum Builder Surgical-assist Estimated Blood Loss 1,000 Findings See Below Liveborn female delivered at 2112 with Apgars 8/9. Intact placenta with three- vessel cord. Cord pH, venous pending. Weight 3520 g. Normal-appearing uterus, bilateral fallopian tubes and ovaries seen at surgery CPD noted at the time of delivery Significant uterine atony noted after delivery of infant, given Methergine x 1, Hemabate x 1 and TXA 1 g x 1, which improved uterine atony Fluids See anesthesia record Specimens Placenta Drains Antunez catheter Anesthesia Type Labor Epidural Complications None Disposition Accompanied Patient To Recovery: No Indications Failure to descend, maternal exhaustion and category 2 tracing Description of Procedure CD Delivery Note History synopsis: Patient was admitted the previous evening for premature rupture of membranes and patient cervix was closed. She was given a dose of Cytotec and progressed to 2.5 cm. She then changed to 3 cm and oxytocin was started for augmentation. She was rechecked and found to have little change and IUPC was placed for further adequate augmentation of Pitocin. She changed her cervix throughout the day and progressed to 7, then complete. She pushed for almost 2 hours and had maternal exhaustion with a category 2 tracing. Offered patient continue trial of pushing, however was 0 station. Due to the exhaustion patient desired to proceed with primary at this time versus attempting to push for ano ther 1 to 2 hours Procedure Summary: section was recommended. Risks, benefits and alternatives were discussed including but not limited to infection, bleeding that may require blood products or hysterectomy for life saving measures, injury to surrounding organs including but not limited to bowel, bladder, ureters, tubes and ovaries and/or the baby. Should injury occur it could require longer/additional surgery to repair. Patient was also counselled about risk of DVT/PE, and injury to infant during delivery. The patient stated understanding and desired to proceed. All questions were answered posed by patient. Prior to being taken to the OR, 2 grams of cefazolin IV and 500 mg of azithromycin IV was administered. The patient was taken to the operating room where regional anesthesia was found to be adequate. She was then prepared and draped in the usual sterile fashion in the dorsal supine position with a leftward tilt displacing the uterus. Antunez was draining to gravity. SCDs were on bilateral lower extremities. A pfannenstiel skin incision was then made with the scalpel and carried through to the underlying layer of fascia. The fascia was incised in the midline and the incision extended laterally with the Pearce scissors. The superior aspect of the facial incision was then grasped with the Lexi clamps, elevated and the underlying rectus muscles dissected off bluntly. Attention was then turned to the inferior aspect of this incision which in a similar fashion was grasped, elevated with the Lexi clamps and the rectus muscle dissected off bluntly. The rectus muscles were in the midline. The peritoneum identified, grasped with the pick-ups and entered sharply with the Metzenbaum scissors. The peritoneal incision was then extended superiorly and inferiorly with good visualization of the bladder. The bladder blade was inserted and the vesicouterine peritoneum was identified, grasped with the pick-ups, and entered sharply with Metzenbaum scissors. This incision was then extended laterally and the bladder flap created digitally and the bladder blade was reinserted. The lower uterine segment was identified and incised in a transverse fashion wit h the scalpel. The uterine incision was then extended bluntly laterally. Artificial rupture of membranes demonstrated clear fluid. The bladder blade was removed. The fetus was in cephalic presentation. The 's head delivered atraumatically. The anterior shoulders were delivered followed by the posterior shoulders then the remainder of the body. The infant's mouth and nose were bulb suctioned. The umbilical cord was clamped times two and cut. The infant was handed off to the awaiting pediatric staff. A female infant was delivered weighing 3520 g with APGARS of 8 at 1 minute and 9 at 5 minutes. The infant was taken to the recovery room for transition. Cord blood gases were obtained. The placenta was removed with gentle traction. 30 units of oxytocin were added to IVF and allowed to run freely. The uterus was exteriorized and cleared of all clots and debris. There was noted to be a safe significant amount of uterine atony at this time. Patient was given 1 dose of Methergine and 1 dose of Hemabate followed by 1 g of TXA while oxytocin was continuously infusing at this time. Uterine tone noted to be improving. The uterine incision was inspected and found to be without any extensions and was repaired with 0 Vicryl in a running, locked fashion. A second imbricating layer was performed. Upon inspection, the repaired hysterotomy was found to be hemostatic. The uterus was firm and returned to the abdomen. Surgifoam was then applied over the hysterotomy. The gutters were cleared of all clots and debris. The fascia was reapproximated with 0 Vicryl in a running fashion. The subcutaneous layer was closed with 2-0 Vicryl in interrupted fashion. The skin was closed in a subcuticular fashion with 4-0 vicryl. Dermabond and pressure bandage was applied over incision. The patient tolerated the procedure well. Sponge, lap and needle counts were correct x4. The patient was taken to the recovery room in stable condition. Attestation: My Drum Builder was necessary throughout the procedure(s) for tissue retraction and irrigation I understand that section 1842 (b)(7)(D) of the Social Security Act generally prohibits Medicare physician fee schedule payment for the services of [id number] in teaching hospitals when qualified residents are available to furnish such services. I certify that the services for which payment is claimed were medically necessary, and that no qualified resident was available to perform the services. I further understand that these services are subject to post-payment review by the Medicare carrier. I attest to the content of the Intraoperative Record and any orders documented therein. Any exceptions are noted below.
[2023-11-27] MEDS ORDERED: OXYTOCIN 10 UNITS/ML VIAL ONE (21:49)
--- NOTE | 2023-11-27 21:51 | Anesthesia Procedure Note ---
Date of Service November 27, 2023 Anesthesia Post Epidural Note Vital Signs Vital Signs: Temp Pulse Resp BP Pulse Ox 37.1 C 89 16 159/72 H 99 11/27/23 19:30 11/27/23 21:48 11/27/23 20:00 11/27/23 21:45 11/27/23 21:48 Pain Intensity Abdomen: Pain Intensity: 3 Notes Mental Status: alert / awake / arousable and participated in evaluation Nausea / Vomiting: adequately controlled Pain: adequately controlled Airway Patency, RR, SpO2: stable & adequate BP & HR: stable & adequate Hydration State: stable & adequate Neuraxial Anesthesia: was administered and sensory block is resolving Anesthetic Complications: no major complications apparent Epidural: Removed without complications and With tip intact
--- NOTE | 2023-11-27 21:52 | Anesthesiology Progress Note ---
Date of Service November 27, 2023 Anesthesia Post Procedure Vital Signs Vital Signs: Temp Pulse Resp BP Pulse Ox 11/27/23 21:48 89 99 11/27/23 21:45 104 H 159/72 H 11/27/23 21:43 110 H 100 11/27/23 20:54 143 H 81 L 11/27/23 20:49 124 H 113/63 85 L 11/27/23 20:48 137 H 85 L 11/27/23 20:44 102 H 97 11/27/23 20:43 109 H 88 L 11/27/23 20:39 106 H 89 L 11/27/23 20:37 104 H 89 L 11/27/23 20:34 104 H 125/71 95 11/27/23 20:31 103 H 88 L 11/27/23 20:29 109 H 82 L 11/27/23 20:26 115 H 87 L 11/27/23 20:24 109 H 84 L 11/27/23 20:21 106 H 85 L 11/27/23 20:19 102 H 98 11/27/23 20:14 88 94 11/27/23 20:11 96 H 88 L 11/27/23 20:09 109 H 84 L 11/27/23 20:05 93 H 119/61 11/27/23 20:04 96 H 87 L 11/27/23 20:00 16 11/27/23 20:00 16 11/27/23 19:59 100 H 85 L 11/27/23 19:54 116 H 93 11/27/23 19:52 118 H 87 L 11/27/23 19:50 101 H 135/91 11/27/23 19:49 111 H 97 11/27/23 19:45 16 11/27/23 19:45 16 11/27/23 19:44 104 H 91 11/27/23 19:39 104 H 87 L 11/27/23 19:34 121 H 89 L 11/27/23 19:30 16 11/27/23 19:30 37.1 C 16 11/27/23 19:29 109 H 97 11/27/23 19:24 116 H 86 L 11/27/23 19:22 106 H 85 L 11/27/23 19:19 122 H 92 11/27/23 19:15 16 11/27/23 19:15 16 11/27/23 19:14 131 H 95 11/27/23 19:09 104 H 92 11/27/23 19:06 127 H 142/79 H 11/27/23 19:05 125 H 87 L 11/27/23 19:04 117 H 89 L 11/27/23 19:00 20 11/27/23 19:00 20 11/27/23 18:59 120 H 98 11/27/23 18:54 111 H 94 11/27/23 18:52 121 H 131/97 11/27/23 18:49 114 H 93 11/27/23 18:44 142 H 92 11/27/23 18:41 131 H 88 L 11/27/23 18:39 113 H 95 11/27/23 18:36 131 H 90 11/27/23 18:34 104 H 97 11/27/23 18:31 98 H 94 11/27/23 18:30 18 11/27/23 18:30 18 11/27/23 18:29 126 H 85 L 11/27/23 18:26 109 H 93 11/27/23 18:25 37.0 C 11/27/23 18:24 129 H 98 11/27/23 18:20 105 H 94 11/27/23 18:19 99 H 154/81 H 94 11/27/23 18:14 128 H 97 11/27/23 18:09 109 H 100 11/27/23 18:05 106 H 169/88 H 11/27/23 18:04 107 H 94 11/27/23 18:01 100 H 92 11/27/23 18:00 16 11/27/23 18:00 16 11/27/23 17:59 99 H 90 11/27/23 17:55 104 H 91 11/27/23 17:54 94 H 99 11/27/23 17:50 96 H 133/72 11/27/23 17:49 95 H 98 11/27/23 17:45 97 H 89 L 11/27/23 17:44 99 H 98 11/27/23 17:39 86 97 11/27/23 17:36 92 H 89 L 11/27/23 17:35 87 133/68 11/27/23 17:34 100 H 98 11/27/23 17:29 87 98 11/27/23 17:24 83 97 11/27/23 17:19 96 11/27/23 17:19 82 11/27/23 17:19 80 137/73 11/27/23 17:14 79 99 11/27/23 17:09 90 100 11/27/23 17:04 95 H 124/67 100 11/27/23 17:00 18 11/27/23 17:00 18 11/27/23 16:59 95 H 100 11/27/23 16:54 81 100 11/27/23 16:52 91 H 93 11/27/23 16:51 93 H 116/68 11/27/23 16:49 86 100 11/27/23 16:44 99 11/27/23 16:44 90 11/27/23 16:44 92 H 94 11/27/23 16:39 95 H 100 11/27/23 16:35 79 105/59 L 11/27/23 16:34 83 97 11/27/23 16:30 18 11/27/23 16:30 18 11/27/23 16:29 74 100 11/27/23 16:24 85 95 11/27/23 16:22 92 H 93 11/27/23 16:19 77 127/64 100 11/27/23 16:15 78 92 11/27/23 16:14 77 98 11/27/23 16:09 98 11/27/23 16:09 86 11/27/23 16:09 82 94 11/27/23 16:06 78 136/66 11/27/23 16:04 83 100 11/27/23 16:03 85 93 11/27/23 16:00 20 11/27/23 16:00 20 11/27/23 15:59 88 100 11/27/23 15:54 89 98 11/27/23 15:52 44 L 80 L 11/27/23 15:49 90 100 11/27/23 15:44 88 100 11/27/23 15:39 92 H 99 11/27/23 15:36 86 140/77 11/27/23 15:34 93 H 100 11/27/23 15:30 18 11/27/23 15:30 36.8 C 18 11/27/23 15:29 100 11/27/23 15:29 93 H 11/27/23 15:29 93 H 92 11/27/23 15:24 90 99 11/27/23 15:20 89 144/81 H 11/27/23 15:19 88 100 11/27/23 15:14 83 98 11/27/23 15:09 85 98 11/27/23 15:04 90 133/69 97 11/27/23 15:00 18 11/27/23 15:00 36.8 C 18 11/27/23 14:59 83 97 11/27/23 14:54 88 96 11/27/23 14:49 90 147/74 H 99 11/27/23 14:45 100 H 92 11/27/23 14:44 96 H 99 11/27/23 14:39 94 H 98 11/27/23 14:38 94 H 93 11/27/23 14:35 87 138/66 11/27/23 14:34 88 100 11/27/23 14:32 88 91 11/27/23 14:30 18 11/27/23 14:30 18 11/27/23 14:29 92 H 98 11/27/23 14:26 90 93 11/27/23 14:24 86 100 11/27/23 14:21 88 123/60 92 11/27/23 14:19 90 100 11/27/23 14:14 92 H 98 11/27/23 14:09 86 100 11/27/23 14:05 85 145/66 H 11/27/23 14:04 87 100 11/27/23 14:02 86 90 11/27/23 14:00 20 11/27/23 14:00 20 11/27/23 13:59 87 99 11/27/23 13:54 79 100 11/27/23 13:52 89 110/66 11/27/23 13:49 91 H 97 11/27/23 13:48 91 H 139/81 11/27/23 13:45 93 H 142/77 H 11/27/23 13:44 91 H 99 11/27/23 13:39 98 H 99 11/27/23 13:35 95 H 124/77 11/27/23 13:34 101 H 100 11/27/23 13:30 20 11/27/23 13:30 20 11/27/23 13:29 101 H 100 11/27/23 13:24 112 H 100 11/27/23 13:23 91 H 90 11/27/23 13:20 95 H 141/78 H 11/27/23 13:19 97 H 100 11/27/23 13:14 99 H 92 11/27/23 13:09 106 H 96 11/27/23 13:07 96 H 92 11/27/23 13:05 103 H 137/76 11/27/23 13:04 101 H 99 11/27/23 13:01 36.8 C 11/27/23 13:00 18 11/27/23 13:00 18 11/27/23 12:59 106 H 97 11/27/23 12:57 107 H 94 11/27/23 12:54 91 H 99 11/27/23 12:50 92 11/27/23 12:50 94 H 11/27/23 12:50 88 138/78 11/27/23 12:49 89 97 11/27/23 12:45 88 89 L 11/27/23 12:44 89 100 11/27/23 12:39 92 H 100 11/27/23 12:38 95 H 93 11/27/23 12:34 91 H 141/75 H 99 11/27/23 12:31 94 H 93 11/27/23 12:30 18 11/27/23 12:30 18 11/27/23 12:29 81 95 11/27/23 12:24 89 93 11/27/23 12:23 83 94 11/27/23 12:20 88 138/75 11/27/23 12:19 86 97 11/27/23 12:14 90 98 11/27/23 12:09 89 96 11/27/23 12:04 98 H 141/78 H 96 11/27/23 12:00 16 11/27/23 12:00 16 11/27/23 11:59 89 96 11/27/23 11:58 82 94 11/27/23 11:54 82 95 11/27/23 11:50 82 139/73 11/27/23 11:49 86 97 11/27/23 11:47 91 H 92 11/27/23 11:44 83 97 11/27/23 11:39 86 97 11/27/23 11:38 86 91 11/27/23 11:34 81 129/66 93 11/27/23 11:32 74 94 11/27/23 11:30 16 11/27/23 11:30 16 11/27/23 11:29 80 95 11/27/23 11:26 74 94 11/27/23 11:24 83 95 11/27/23 11:19 82 138/72 95 11/27/23 11:14 79 95 11/27/23 11:09 77 95 11/27/23 11:06 74 128/68 11/27/23 11:04 81 98 11/27/23 11:00 36.7 C 82 16 94 11/27/23 10:59 82 96 11/27/23 10:54 82 96 11/27/23 10:49 81 129/71 97 11/27/23 10:44 88 98 11/27/23 10:39 79 99 11/27/23 10:35 82 125/69 11/27/23 10:34 86 100 11/27/23 10:30 16 11/27/23 10:30 16 11/27/23 10:29 80 98 11/27/23 10:28 80 94 11/27/23 10:24 74 94 11/27/23 10:22 83 94 11/27/23 10:20 76 130/66 11/27/23 10:19 80 96 11/27/23 10:17 76 94 11/27/23 10:14 82 97 11/27/23 10:12 78 94 11/27/23 10:09 81 96 11/27/23 10:04 95 11/27/23 10:04 80 11/27/23 10:04 83 123/68 94 11/27/23 10:00 16 11/27/23 10:00 16 11/27/23 09:59 86 91 11/27/23 09:57 78 94 11/27/23 09:54 77 94 11/27/23 09:50 79 94 11/27/23 09:49 76 131/68 96 11/27/23 09:44 96 11/27/23 09:44 92 H 11/27/23 09:44 82 94 11/27/23 09:39 89 97 11/27/23 09:35 81 134/64 11/27/23 09:34 86 95 11/27/23 09:30 88 16 94 11/27/23 09:29 93 H 94 11/27/23 09:24 79 92 11/27/23 09:19 85 126/58 L 95 11/27/23 09:14 80 93 11/27/23 09:12 82 93 11/27/23 09:09 83 95 11/27/23 09:07 81 94 11/27/23 09:04 91 H 133/63 96 11/27/23 09:00 16 11/27/23 09:00 36.8 C 16 11/27/23 08:59 82 94 11/27/23 08:54 83 94 11/27/23 08:53 91 H 93 11/27/23 08:49 88 127/66 93 11/27/23 08:48 101 H 94 11/27/23 08:44 95 H 93 11/27/23 08:43 95 H 94 11/27/23 08:39 88 93 11/27/23 08:35 96 H 11/27/23 08:35 93 H 139/71 94 11/27/23 08:34 96 H 94 11/27/23 08:30 87 94 11/27/23 08:29 89 94 11/27/23 08:24 96 H 94 11/27/23 08:23 98 H 94 11/27/23 08:20 95 H 131/89 11/27/23 08:19 96 H 93 11/27/23 08:16 99 H 94 11/27/23 08:14 92 H 96 11/27/23 08:10 88 94 11/27/23 08:09 92 H 96 11/27/23 08:06 94 H 156/84 H 11/27/23 08:04 98 H 98 11/27/23 08:00 97 H 16 92 11/27/23 07:59 103 H 97 11/27/23 07:54 93 H 98 11/27/23 07:52 94 H 93 11/27/23 07:50 92 H 135/66 11/27/23 07:49 88 98 11/27/23 07:44 100 11/27/23 07:44 88 11/27/23 07:44 92 H 91 11/27/23 07:39 95 H 100 11/27/23 07:35 82 132/71 11/27/23 07:34 88 100 11/27/23 07:33 94 H 93 11/27/23 07:29 89 97 11/27/23 07:26 91 H 93 11/27/23 07:24 92 H 97 11/27/23 07:20 88 131/62 11/27/23 07:19 93 H 97 11/27/23 07:18 90 92 11/27/23 07:15 36.7 C 16 11/27/23 07:13 92 H 99 11/27/23 07:08 100 H 100 11/27/23 07:05 88 138/80 11/27/23 07:03 92 H 97 11/27/23 07:00 18 11/27/23 07:00 18 11/27/23 06:58 91 H 98 11/27/23 06:53 93 H 97 11/27/23 06:50 93 H 127/70 11/27/23 06:48 92 H 96 11/27/23 06:43 91 H 97 11/27/23 06:38 86 96 11/27/23 06:37 95 H 117/57 L 11/27/23 06:33 93 H 98 11/27/23 06:32 94 H 94 11/27/23 06:30 18 11/27/23 06:30 18 11/27/23 06:28 95 H 95 11/27/23 06:24 86 94 11/27/23 06:23 83 95 11/27/23 06:20 90 130/67 11/27/23 06:18 96 11/27/23 06:18 87 11/27/23 06:18 87 94 11/27/23 06:13 93 H 95 11/27/23 06:09 99 H 94 11/27/23 06:08 97 H 94 11/27/23 06:03 108 H 92 11/27/23 06:00 98 H 93 11/27/23 05:58 105 H 99 11/27/23 05:53 105 H 96 11/27/23 05:49 100 H 145/75 H 11/27/23 05:48 105 H 96 11/27/23 05:43 104 H 95 11/27/23 05:38 108 H 100 11/27/23 05:35 104 H 140/75 11/27/23 05:33 112 H 98 11/27/23 05:30 18 11/27/23 05:30 36.7 C 18 11/27/23 05:28 116 H 95 11/27/23 05:23 115 H 95 11/27/23 05:19 113 H 139/78 11/27/23 05:18 116 H 99 11/27/23 05:16 116 H 142/79 H 11/27/23 05:13 111 H 152/83 H 98 11/27/23 05:09 115 H 157/78 H 11/27/23 05:08 111 H 98 11/27/23 05:07 118 H 159/75 H 11/27/23 05:03 107 H 96 11/27/23 04:58 115 H 100 11/27/23 04:53 105 H 100 11/27/23 04:48 104 H 100 11/27/23 04:43 113 H 100 11/27/23 04:20 92 H 130/73 11/27/23 02:30 18 11/27/23 02:30 36.8 C 18 11/27/23 01:46 95 H 138/68 11/26/23 23:15 91 H 147/75 H 11/26/23 23:10 18 11/26/23 23:10 36.7 C 18 Pain Intensity Abdomen: Pain Intensity: 3 Transfer of Care Handoff Completed per policy Notes Mental Status: alert / awake / arousable Patient Amnestic to Procedure: Yes Nausea / Vomiting: adequately controlled Pain: adequately controlled Airway Patency, RR, SpO2: stable & adequate BP & HR: stable & adequate Hydration State: stable & adequate Neuraxial Anesthesia: was administered and sensory block is resolving Anesthetic Complications: no major complications apparent and Pt Satisfied with anesthetic care
[2023-11-28] MEDS: OXYTOCIN 30 UNITS/LR 1,003 ML IV SCH (00:04)
[2023-11-28] MEDS ORDERED: TRANEXAMIC ACID / 0.7% NACL 1,000 MG/100 ML BAG IV STA (00:43)
[2023-11-28] MEDS ORDERED: SODIUM CHLORIDE 0.9% 250 ML IV PRN (02:07)
[2023-11-28] MEDS ORDERED: NALBUPHINE HCL 5 MG in SYRINGE 0 ML IV PRN (02:14)
[2023-11-28] MEDS ORDERED: ONDANSETRON INJ 2 MG/ML 2 ML VIAL IV PRN ×2 (02:14→14:44)
[2023-11-28] MEDS: KETOROLAC 30 MG/ML VIAL IV PRN (05:00)
[2023-11-28 06:55] LABS: Hematocrit (blood only) 28.4 % (37.0-47.0); Hemoglobin 9.7 g/dl (12.0-16.0); Mean Corpuscular Hemoglobin 31.3 pg (25.0-34.0); Mean Corpuscular Hgb Conc 34.2 g/dL (32.0-36.0); Mean Corpuscular Volume 91.6 fL (80.0-100.0); Mean Platelet Volume 10.9 fL (9.4-12.4); Platelet Count 187 K/uL (130-400); RDW Coefficient of Variation 13.2 % (11.5-14.5); RDW Standard Deviation 43.7 fL (36.4-46.3); White Blood Count 25.03 K/ul (4.8-10.8)
[2023-11-28 07:52] LABS: Basophils # (auto) 0.08 K/uL (0.00-0.20); Basophils % (auto) 0.3 %; Eosinophils # (auto) 0.07 K/uL (0.00-0.50); Eosinophils % (auto) 0.3 %; Immature Granulocytes % (auto) 0.8 %; Lymphocytes # (auto) 0.77 K/uL (1.20-3.40); Lymphocytes % (auto) 3.1 %; Monocytes # (auto) 1.35 K/uL (0.11-0.59); Monocytes % (auto) 5.4 %; Neutrophils # (auto) 22.56 K/uL (1.40-6.50); Neutrophils % (auto) 90.1 %
[2023-11-28] MEDS: LACTATED RINGER'S 1,000 ML IV SCH (07:58)
[2023-11-28] MEDS: SIMETHICONE 80 MG CHEW PO SCH (08:02)
[2023-11-28] MEDS: DOCUSATE SODIUM 100 MG CAP PO SCH (08:02)
[2023-11-28] MEDS: FERROUS SULFATE 325 MG TAB PO SCH (08:02)
[2023-11-28] MEDS: PRENATAL VITAMIN 1 TAB PO SCH (08:02)
[2023-11-28 08:27] LABS: Albumin Level 2.8 gm/dl (3.4-5.0); Anion Gap 9 (3-11); Bilirubin,Total 0.5 mg/dl (0.2-1.0); Calcium 8.4 mg/dl (8.6-10.3); Carbon Dioxide 21 mmol/L (21-32); Chloride 105 mmol/L (98-107); Potassium 3.7 mmol/L (3.5-5.1); Sodium 135 mmol/L (136-145)
[2023-11-28 08:32] LABS: Alanine Aminotransferase 18 U/L (7-52); Albumin Globulin Ratio 1.3 (0.9-2); Alkaline Phosphatase 111 U/L (34-104); Aspartate Aminotransferase 24 U/L (13-39); BUN Creatinine Ratio 11.1 (10-20); Blood Urea Nitrogen 6 mg/dl (6-23); Est GFR (African American) > 150.0 ml/min; Est GFR (Non-African American) 130.2 ml/min; Globulin 2.2 gm/dl (2.5-4.0); Glucose 130 mg/dl (70-99(Fasting))
--- NOTE | 2023-11-28 10:29 | Obstetrical Progress Note ---
Date of Service November 28, 2023 Subjective Ambulation: limited ambulation Voiding: wallis catheter in place Passing Gas:: No Diet Tolerance:: regular diet Lochia:: Small Feeding Type:: breast feeding Current Pain Level(1-10): 0 doing well Physical Exam Constitutional WD/WN, vitals as above Gastrointestinal (Abdomen) Inspection/Auscultation: abdomen normal to inspection incision c/d/i Musculoskeletal Extremities: extremities normal to inspection Skin no rashes, warm and dry Neurologic patellar DTR's 2+ bilat, sensation intact Psychiatric A+Ox3, euthymic affect Results & Data Vital Signs (Past 12 Hours) Vital Signs Temp Pulse Pulse Resp BP BP Pulse Ox 11/28/23 10:14 18 98 11/28/23 08:30 16 96 11/28/23 07:45 16 98 11/28/23 07:45 36.7 C 89 16 112/78 98 11/28/23 07:45 11/28/23 04:20 20 97 11/28/23 04:20 36.8 C 91 H 20 117/75 97 11/28/23 03:05 20 98 11/28/23 02:05 20 97 11/28/23 01:05 20 98 11/28/23 00:05 20 100 11/28/23 00:05 36.7 C 86 20 131/86 100 11/27/23 23:46 88 136/73 11/27/23 23:45 36.7 C 16 11/27/23 23:43 84 98 11/27/23 23:38 94 H 98 11/27/23 23:36 81 133/68 11/27/23 23:33 83 98 11/27/23 23:28 93 H 98 11/27/23 23:27 84 139/73 11/27/23 23:23 94 H 100 11/27/23 23:18 82 98 11/27/23 23:16 76 130/64 11/27/23 23:15 16 11/27/23 23:13 79 98 11/27/23 23:08 100 H 99 11/27/23 23:06 86 136/68 11/27/23 23:03 86 97 11/27/23 22:58 91 H 97 11/27/23 22:56 88 132/71 11/27/23 22:53 88 98 11/27/23 22:48 93 H 97 11/27/23 22:46 90 133/74 11/27/23 22:45 16 11/27/23 22:45 16 11/27/23 22:43 92 H 98 11/27/23 22:38 93 H 98 11/27/23 22:36 93 H 138/73 11/27/23 22:35 16 11/27/23 22:33 89 99 11/27/23 22:28 104 H 98 Pulse Ox O2 Del Method O2 Del Method 11/28/23 10:14 11/28/23 08:30 11/28/23 07:45 11/28/23 07:45 Room Air 11/28/23 07:45 98 Room Air 11/28/23 04:20 11/28/23 04:20 Room Air 11/28/23 03:05 11/28/23 02:05 11/28/23 01:05 11/28/23 00:05 11/28/23 00:05 Room Air 11/27/23 23:46 11/27/23 23:45 11/27/23 23:43 11/27/23 23:38 11/27/23 23:36 11/27/23 23:33 11/27/23 23:28 11/27/23 23:27 11/27/23 23:23 11/27/23 23:18 11/27/23 23:16 11/27/23 23:15 11/27/23 23:13 11/27/23 23:08 11/27/23 23:06 11/27/23 23:03 11/27/23 22:58 11/27/23 22:56 11/27/23 22:53 11/27/23 22:48 11/27/23 22:46 11/27/23 22:45 11/27/23 22:45 11/27/23 22:43 11/27/23 22:38 11/27/23 22:36 11/27/23 22:35 11/27/23 22:33 11/27/23 22:28 Laboratory Results 11/26/23 11/27/23 11/27/23 21:18 00:22 09:45 WBC 11.98 H RBC 3.87 L Hgb 12.0 Hct 34.5 L MCV 89.1 MCH 31.0 MCHC 34.8 RDW Std Deviation 42.5 RDW Coeff of Jeff 13.1 Plt Count 232 MPV 11.6 Immature Gran % (Auto) Neut % (Auto) Lymph % (Auto) [place] % (Auto) Eos % (Auto) Baso % (Auto) Neut # (Auto) Lymph # (Auto) [place] # (Auto) Eos # (Auto) Baso # (Auto) Immature Gran # (Auto) Sodium 136 Potassium 3.5 Chloride 104 Carbon Dioxide 23 Anion Gap 9 BUN 8 Creatinine 0.63 Est Cr Clr Drug Dosing 134.6 Est GFR ( Amer) 143.5 Est GFR (Non-Af Amer) 123.8 BUN/Creatinine Ratio 12.7 Glucose 91 Calcium 8.7 Total Bilirubin 0.4 AST 22 ALT 19 Alkaline Phosphatase 145 H Total Protein 6.2 Albumin 3.4 Globulin 2.8 Albumin/Globulin Ratio 1.2 Ur Random Creatinine 18.0 U Random Total Protein < 4.0 Protein/Creatinin Ratio TNP Blood Type A Positive Blood Type Recheck Antibody Screen NEGATIVE Crossmatch See Detail 11/28/23 05:49 WBC 25.03 H RBC 3.10 L Hgb 9.7 L Hct 28.4 L MCV 91.6 MCH 31.3 MCHC 34.2 RDW Std Deviation 43.7 RDW Coeff of Jeff 13.2 Plt Count 187 MPV 10.9 Immature Gran % (Auto) 0.8 Neut % (Auto) 90.1 Lymph % (Auto) 3.1 [place] % (Auto) 5.4 Eos % (Auto) 0.3 Baso % (Auto) 0.3 Neut # (Auto) 22.56 H Lymph # (Auto) 0.77 L [place] # (Auto) 1.35 H Eos # (Auto) 0.07 Baso # (Auto) 0.08 Immature Gran # (Auto) 0.20 Sodium 135 L Potassium 3.7 Chloride 105 Carbon Dioxide 21 Anion Gap 9 BUN 6 Creatinine 0.54 L Est Cr Clr Drug Dosing 157.0 Est GFR ( Amer) > 150.0 Est GFR (Non-Af Amer) 130.2 BUN/Creatinine Ratio 11.1 Glucose 130 H Calcium 8.4 L Total Bilirubin 0.5 AST 24 ALT 18 Alkaline Phosphatase 111 H Total Protein 5.0 L D Albumin 2.8 L Globulin 2.2 L Albumin/Globulin Ratio 1.3 Ur Random Creatinine U Random Total Protein Protein/Creatinin Ratio Blood Type Blood Type Recheck A Positive Antibody Screen Crossmatch
[2023-11-28] MEDS ORDERED: KETOROLAC 30 MG/ML VIAL IV PRN (14:44)
[2023-11-28] MEDS ORDERED: oxyCODONE/ACETAMINOPHEN 5mg/325mg TAB PO PRN (14:44)
[2023-11-28] MEDS ORDERED: PROMETHAZINE HCL 25 MG in SODIUM CHLORIDE 0.9% 50 ML IV PRN (14:44)
[2023-11-28] MEDS ORDERED: diphenhydrAMINE 50 MG/ML VIAL IV PRN (14:44)
[2023-11-28] MEDS ORDERED: diphenhydrAMINE Capsule 25 MG CAP PO PRN (14:44)
[2023-11-28] MEDS: IBUPROFEN 600 MG TAB PO PRN (17:16)
[2023-11-28] MEDS: bisacodyL 5 MG TABEC PO SCH (19:52)
[2023-11-29 06:49] LABS: Basophils # (auto) 0.04 K/uL (0.00-0.20); Basophils % (auto) 0.2 %; Eosinophils # (auto) 0.16 K/uL (0.00-0.50); Eosinophils % (auto) 0.8 %; Hematocrit (blood only) 24.9 % (37.0-47.0); Hemoglobin 8.3 g/dl (12.0-16.0); Immature Granulocytes # (auto) 0.17 K/uL (0.01-0.20); Immature Granulocytes % (auto) 0.9 %; Lymphocytes # (auto) 1.75 K/uL (1.20-3.40); Lymphocytes % (auto) 9.3 %; Mean Corpuscular Hemoglobin 30.7 pg (25.0-34.0); Mean Corpuscular Hgb Conc 33.3 g/dL (32.0-36.0); Mean Corpuscular Volume 92.2 fL (80.0-100.0); Mean Platelet Volume 10.9 fL (9.4-12.4); Monocytes # (auto) 1.42 K/uL (0.11-0.59); Monocytes % (auto) 7.5 %; Neutrophils # (auto) 15.34 K/uL (1.40-6.50); Neutrophils % (auto) 81.3 %; Platelet Count 201 K/uL (130-400); RDW Coefficient of Variation 13.7 % (11.5-14.5); RDW Standard Deviation 46.1 fL (36.4-46.3); White Blood Count 18.88 K/ul (4.8-10.8)
[2023-11-29 07:07] LABS: Albumin Globulin Ratio 1.2 (0.9-2); Albumin Level 2.8 gm/dl (3.4-5.0); Bilirubin,Total 0.3 mg/dl (0.2-1.0); Calcium 8.5 mg/dl (8.6-10.3); Est GFR (Non-African American) 125.1 ml/min; Globulin 2.3 gm/dl (2.5-4.0); Total Protein 5.1 gm/dl (6.0-8.3)
--- NOTE | 2023-11-29 08:48 | Obstetrical Progress Note ---
Date of Service November 29, 2023 Assessment & Plan Admission and Anticipated Discharge Date Admission Date: November 26, 2023 Subjective Patient is seen and examined. She feels well, no complaints. Pain is under control with oral meds. Ambulating without dizziness Voiding without difficulty Tolerating regular diet with out N&V Flatus + BM neg Bleeding is minimal No fever/ chills/ CP/ SOB/ N&V/ Leg pain Breast feeding without problems Vital Signs Temp Pulse Resp BP Pulse Ox O2 Del Method 11/28/23 23:05 36.4 C L 90 18 102/68 99 Room Air 11/28/23 19:50 36.9 C 85 18 112/66 98 Room Air 11/28/23 17:00 37.1 C 104 H 16 114/74 100 Room Air 11/28/23 14:58 16 98 11/28/23 14:10 16 99 11/28/23 13:01 16 98 11/28/23 12:30 36.7 C 88 17 110/72 98 Room Air 11/28/23 11:59 18 99 11/28/23 11:05 17 100 11/28/23 10:14 18 98 Intake and Output 11/28/23 11/29/23 11/29/23 22:59 06:59 14:59 Output Total 900 / 2350 Balance -900 / -1362.5 Output: Urine 500 / 500 Urine Amount (Catheter) 400 / 1850 Antunez/Indwelling 400 / 1850 Lab Results 11/26/23 11/27/23 11/27/23 Range/Units 21:18 00:22 09:45 WBC 11.98 H (4.8-10.8) K/ul RBC 3.87 L (4.20-5.40) M/uL Hgb 12.0 (12.0-16.0) g/dl Hct 34.5 L (37.0-47.0) % MCV 89.1 (80.0-100.0) fL MCH 31.0 (25.0-34.0) pg MCHC 34.8 (32.0-36.0) g/dL RDW Std Deviation 42.5 (36.4-46.3) fL RDW Coeff of Jeff 13.1 (11.5-14.5) % Plt Count 232 (130-400) K/uL MPV 11.6 (9.4-12.4) fL Immature Gran % (Auto) % Neut % (Auto) % Lymph % (Auto) % [place] % (Auto) % Eos % (Auto) % Baso % (Auto) % Neut # (Auto) (1.40-6.50) K/uL Lymph # (Auto) (1.20-3.40) K/uL [place] # (Auto) (0.11-0.59) K/uL Eos # (Auto) (0.00-0.50) K/uL Baso # (Auto) (0.00-0.20) K/uL Immature Gran # (Auto) (0.01-0.20) K/uL Sodium 136 (136-145) mmol/L Potassium 3.5 (3.5-5.1) mmol/L Chloride 104 (98-107) mmol/L Carbon Dioxide 23 (21-32) mmol/L Anion Gap 9 (3-11) BUN 8 (6-23) mg/dl Creatinine 0.63 (0.6-1.2) mg/dl Est Cr Clr Drug Dosing 134.6 ml/min Est GFR ( Amer) 143.5 ml/min Est GFR (Non-Af Amer) 123.8 ml/min BUN/Creatinine Ratio 12.7 (10-20) Glucose 91 (70-99(Fasting)) mg/dl Calcium 8.7 (8.6-10.3) mg/dl Total Bilirubin 0.4 (0.2-1.0) mg/dl AST 22 (13-39) U/L ALT 19 (7-52) U/L Alkaline Phosphatase 145 H (34-104) U/L Total Protein 6.2 (6.0-8.3) gm/dl Albumin 3.4 (3.4-5.0) gm/dl Globulin 2.8 (2.5-4.0) gm/dl Albumin/Globulin Ratio 1.2 (0.9-2) Ur Random Creatinine 18.0 mg/dl U Random Total Protein < 4.0 (0-11.9) mg/dl Protein/Creatinin Ratio TNP Blood Type A Positive Blood Type Recheck Antibody Screen NEGATIVE Crossmatch See Detail 11/28/23 11/29/23 Range/Units 05:49 06:11 WBC 25.03 H 18.88 H (4.8-10.8) K/ul RBC 3.10 L 2.70 L (4.20-5.40) M/uL Hgb 9.7 L 8.3 L (12.0-16.0) g/dl Hct 28.4 L 24.9 L (37.0-47.0) % MCV 91.6 92.2 (80.0-100.0) fL MCH 31.3 30.7 (25.0-34.0) pg MCHC 34.2 33.3 (32.0-36.0) g/dL RDW Std Deviation 43.7 46.1 (36.4-46.3) fL RDW Coeff of Jeff 13.2 13.7 (11.5-14.5) % Plt Count 187 201 (130-400) K/uL MPV 10.9 10.9 (9.4-12.4) fL Immature Gran % (Auto) 0.8 0.9 % Neut % (Auto) 90.1 81.3 % Lymph % (Auto) 3.1 9.3 % [place] % (Auto) 5.4 7.5 % Eos % (Auto) 0.3 0.8 % Baso % (Auto) 0.3 0.2 % Neut # (Auto) 22.56 H 15.34 H (1.40-6.50) K/uL Lymph # (Auto) 0.77 L 1.75 (1.20-3.40) K/uL [place] # (Auto) 1.35 H 1.42 H (0.11-0.59) K/uL Eos # (Auto) 0.07 0.16 (0.00-0.50) K/uL Baso # (Auto) 0.08 0.04 (0.00-0.20) K/uL Immature Gran # (Auto) 0.20 0.17 (0.01-0.20) K/uL Sodium 135 L 137 (136-145) mmol/L Potassium 3.7 4.0 (3.5-5.1) mmol/L Chloride 105 107 (98-107) mmol/L Carbon Dioxide 21 25 (21-32) mmol/L Anion Gap 9 5 (3-11) BUN 6 11 (6-23) mg/dl Creatinine 0.54 L 0.61 (0.6-1.2) mg/dl Est Cr Clr Drug Dosing 157.0 139.0 ml/min Est GFR ( Amer) > 150.0 145.0 ml/min Est GFR (Non-Af Amer) 130.2 125.1 ml/min BUN/Creatinine Ratio 11.1 18.0 (10-20) Glucose 130 H 87 (70-99(Fasting)) mg/dl Calcium 8.4 L 8.5 L (8.6-10.3) mg/dl Total Bilirubin 0.5 0.3 (0.2-1.0) mg/dl AST 24 20 (13-39) U/L ALT 18 18 (7-52) U/L Alkaline Phosphatase 111 H 99 (34-104) U/L Total Protein 5.0 L D 5.1 L (6.0-8.3) gm/dl Albumin 2.8 L 2.8 L (3.4-5.0) gm/dl Globulin 2.2 L 2.3 L (2.5-4.0) gm/dl Albumin/Globulin Ratio 1.3 1.2 (0.9-2) Ur Random Creatinine mg/dl U Random Total Protein (0-11.9) mg/dl Protein/Creatinin Ratio Blood Type Blood Type Recheck A Positive Antibody Screen Crossmatch PE: General: Alert, orientedx3, NAD CVS: S1S2 RRR Lungs; CTAB Abd: soft, NT, ND, BS+, fundus firm, below Umbilicus Incision: Clean, dry, intact Perineum intact, Lochia rubra minimal Ext; NT, 1+/ 1+ edema, Homans sign / neg/neg AP: 28 yo s/p C Section, pod# 2 VSS Afebrile doing well Elevated WBCC, trending down, repeat tomorrow IV iron for anemia Continue routine postop care Encourage ambulation, PO intake All questions were answered D/C home tomorrow Results & Data Vital Signs (Past 12 Hours) Vital Signs Temp Pulse Resp BP Pulse Ox O2 Del Method 11/28/23 23:05 36.4 C L 90 18 102/68 99 Room Air
[2023-11-29] MEDS: ACETAMINOPHEN 325 MG TAB PO PRN (09:47)
[2023-11-29] MEDS: IRON SUCROSE 200 MG in 0.9 % SODIUM CHLORIDE 100 ML IV ONE (09:48)
[2023-11-29] MEDS ORDERED: BUTORPHANOL TARTRATE 2 MG/ML VIAL IV PRN (14:52)
[2023-11-29] MEDS ORDERED: bisacodyL 10 MG SUPP PR PRN (21:36)
[2023-11-30 06:41] LABS: Basophils # (auto) 0.05 K/uL (0.00-0.20); Basophils % (auto) 0.4 %; Eosinophils # (auto) 0.22 K/uL (0.00-0.50); Eosinophils % (auto) 1.8 %; Hematocrit (blood only) 24.8 % (37.0-47.0); Hemoglobin 8.2 g/dl (12.0-16.0); Immature Granulocytes # (auto) 0.28 K/uL (0.01-0.20); Immature Granulocytes % (auto) 2.2 %; Lymphocytes # (auto) 1.91 K/uL (1.20-3.40); Lymphocytes % (auto) 15.3 %; Mean Corpuscular Hemoglobin 31.1 pg (25.0-34.0); Mean Corpuscular Hgb Conc 33.1 g/dL (32.0-36.0); Mean Corpuscular Volume 93.9 fL (80.0-100.0); Mean Platelet Volume 10.5 fL (9.4-12.4); Monocytes # (auto) 0.92 K/uL (0.11-0.59); Monocytes % (auto) 7.4 %; Neutrophils # (auto) 9.09 K/uL (1.40-6.50); Neutrophils % (auto) 72.9 %; Platelet Count 190 K/uL (130-400); RDW Coefficient of Variation 13.2 % (11.5-14.5); RDW Standard Deviation 45.9 fL (36.4-46.3); Red Blood Count 2.64 M/uL (4.20-5.40); White Blood Count 12.47 K/ul (4.8-10.8)
[2023-11-30 06:55] LABS: Albumin Globulin Ratio 1.2 (0.9-2); Albumin Level 2.8 gm/dl (3.4-5.0); BUN Creatinine Ratio 21.4 (10-20); Bilirubin,Total 0.2 mg/dl (0.2-1.0); Calcium 8.4 mg/dl (8.6-10.3); Creatinine Clr Calc Pharmacy 151.4 ml/min; Est GFR (African American) 149.1 ml/min; Est GFR (Non-African American) 128.7 ml/min; Globulin 2.4 gm/dl (2.5-4.0); Potassium 3.9 mmol/L (3.5-5.1); Total Protein 5.2 gm/dl (6.0-8.3)
--- NOTE | 2023-11-30 07:33 | Obstetrical Progress Note ---
Date of Service November 30, 2023 Assessment & Plan Admission and Anticipated Discharge Date Admission Date: November 26, 2023 Subjective Patient is seen and examined. She feels well, no complaints. Pain is under control with oral meds. Ambulating without dizziness Voiding without difficulty Tolerating regular diet with out N&V Flatus + Bleeding is minimal No fever/ chills/ CP/ SOB/ N&V/ Leg pain Breast feeding without problems 11/30/23 Range/Units 06:08 WBC 12.47 H (4.8-10.8) K/ul RBC 2.64 L (4.20-5.40) M/uL Hgb 8.2 L (12.0-16.0) g/dl Hct 24.8 L (37.0-47.0) % MCV 93.9 (80.0-100.0) fL MCH 31.1 (25.0-34.0) pg MCHC 33.1 (32.0-36.0) g/dL RDW Std Deviation 45.9 (36.4-46.3) fL RDW Coeff of Jeff 13.2 (11.5-14.5) % Plt Count 190 (130-400) K/uL MPV 10.5 (9.4-12.4) fL Immature Gran % (Auto) 2.2 % Neut % (Auto) 72.9 % Lymph % (Auto) 15.3 % [place] % (Auto) 7.4 % Eos % (Auto) 1.8 % Baso % (Auto) 0.4 % Neut # (Auto) 9.09 H (1.40-6.50) K/uL Lymph # (Auto) 1.91 (1.20-3.40) K/uL [place] # (Auto) 0.92 H (0.11-0.59) K/uL Eos # (Auto) 0.22 (0.00-0.50) K/uL Baso # (Auto) 0.05 (0.00-0.20) K/uL Immature Gran # (Auto) 0.28 H (0.01-0.20) K/uL Sodium 139 (136-145) mmol/L Potassium 3.9 (3.5-5.1) mmol/L Chloride 107 (98-107) mmol/L Carbon Dioxide 26 (21-32) mmol/L Anion Gap 6 (3-11) BUN 12 (6-23) mg/dl Creatinine 0.56 L (0.6-1.2) mg/dl Est Cr Clr Drug Dosing 151.4 ml/min Est GFR ( Amer) 149.1 ml/min Est GFR (Non-Af Amer) 128.7 ml/min BUN/Creatinine Ratio 21.4 H (10-20) Glucose 79 (70-99(Fasting)) mg/dl Calcium 8.4 L (8.6-10.3) mg/dl Total Bilirubin 0.2 (0.2-1.0) mg/dl AST 17 (13-39) U/L ALT 15 (7-52) U/L Alkaline Phosphatase 102 (34-104) U/L Total Protein 5.2 L (6.0-8.3) gm/dl Albumin 2.8 L (3.4-5.0) gm/dl Globulin 2.4 L (2.5-4.0) gm/dl Albumin/Globulin Ratio 1.2 (0.9-2) Vital Signs Temp Pulse Resp BP Pulse Ox O2 Del Method 11/30/23 02:58 36.4 C L 83 18 118/70 97 Room Air 11/29/23 19:45 36.7 C 86 16 117/65 98 Room Air PE: General: Alert, orientedx3, NAD CVS: S1S2 RRR Lungs; CTAB Abd: soft, NT, ND, BS+, fundus firm, below Umbilicus Incision: Clean, dry, intact Perineum intact, Lochia rubra minimal Ext; NT, no edema AP: 28 yo s/p C Section, pod# 3 VSS Afebrile doing well Continue routine postop care Encourage ambulation, PO intake All questions were answered D/C home , f/u in office Results & Data Vital Signs (Past 12 Hours) Vital Signs Temp Pulse Resp BP Pulse Ox O2 Del Method 11/30/23 02:58 36.4 C L 83 18 118/70 97 Room Air 11/29/23 19:45 36.7 C 86 16 117/65 98 Room Air
== END 2023-11-30 12:15 | disposition home or self-care (01) | DRG 787 ==
LOC: OPB 20:04 → 4S1 20:06 → 4E2 11-28 00:20